=== PATIENT | female | born 1960 | race Caucasian/White ===

== ENCOUNTER 2016-06-22 20:54 | Inpatient (IN) | payer OTHER ==
[~2016-06-22 20:54] MED LIST: THIAMINE 100 MG TAB PO SCH
[2016-06-22] MEDS ORDERED: SODIUM CHLORIDE 0.9% 1,000 ML IV STA (21:16)
[2016-06-22] MEDS ORDERED: SODIUM CHLORIDE 0.9% 500 ML IV STA (21:16)
--- NOTE | 2016-06-22 21:16 | ED ---
General Adult HPI - General Chief complaint: Overdose Stated complaint: ETOH,OD Time Seen by Provider: 06/22/16 20:59 Source: patient, RN notes reviewed, old records reviewed Mode of arrival: EMS Limitations: no limitations - History of Present Illness Initial comments: This is a 36-year-old female brought in by EMS. Patient brought in for evaluation of overdose, patient was responsive to Narcan but [facility] found unresponsive, patient overdosed on multiple medications. - Related Data Home Medications Medication Instructions Recorded Confirmed HYDROcodone/APAP 10-325MG [[place] 1 tab PO Q6H PRN 10/24/13 06/22/16 10] fentaNYL [Duragesic] 1 patch TRANSDERM Q72H 10/24/13 06/22/16 Atenolol [Tenormin] 50 mg PO BID 06/22/16 06/22/16 Gabapentin 600 mg PO TID 06/22/16 06/22/16 Zolpidem [Ambien] 5 mg PO HS PRN 06/22/16 06/22/16 buPROPion HCL [Wellbutrin XL] 300 mg PO DAILY 06/22/16 06/22/16 Allergies Allergy/AdvReac Type Severity Reaction Status Date / Time No Known Allergies Allergy Verified 06/22/16 21:15 Review of Systems ROS Statement: Those systems with pertinent positive or pertinent negative responses have been documented in the HPI. ROS Other: All systems not noted in ROS Statement are negative. Past Medical History Additional Past Medical History / Comment(s): fibromyalgia per mother heart valve leakage History of Any Multi-Drug Resistant Organisms: None Reported Past Surgical History: Bariatric Surgery Past Psychological History: Depression Smoking Status: Current every day smoker Past Alcohol Use History: Heavy Past Drug Use History: Prescription Drug Abuse General Exam Limitations: no limitations General appearance: alert, appears intoxicated, anxious Head exam: Present: atraumatic, normocephalic, normal inspection Eye exam: Present: normal appearance, PERRL, EOMI. Absent: scleral icterus, conjunctival injection, periorbital swelling ENT exam: Present: normal exam, mucous membranes moist Neck exam: Present: normal inspection. Absent: tenderness, meningismus, lymphadenopathy Respiratory exam: Present: normal lung sounds bilaterally. Absent: respiratory distress, wheezes, rales, rhonchi, stridor Cardiovascular Exam: Present: regular rate, normal rhythm, normal heart sounds. Absent: systolic murmur, diastolic murmur, rubs, gallop, clicks GI/Abdominal exam: Present: soft, normal bowel sounds. Absent: distended, tenderness, guarding, rebound, rigid Extremities exam: Present: normal inspection, full ROM, normal capillary refill. Absent: tenderness, pedal edema, joint swelling, calf tenderness Back exam: Present: normal inspection Neurological exam: Present: alert, oriented X3, CN II-XII intact Psychiatric exam: Present: normal affect, normal mood Skin exam: Present: warm, dry, intact, normal color. Absent: rash Course Vital Signs 06/22/16 21:03 Temperature 98.0 F Pulse Rate 83 Respiratory 20 Rate Blood Pressure 129/59 O2 Sat by Pulse 99 Oximetry - Reevaluation(s) Reevaluation #1: 06/22/16 23:26 Patient continues to remain agitated and combative, using Ativan to keep patient called EKG Findings - EKG Comments: EKG Findings:: EKG shows normal sinus rhythm rate 91, VA 144, QRS 84, QTC 477 Medical Decision Making - Medical Decision Making 56 female year for evaluation of polysubstance overdose including alcohol. Patient with severe alcohol did overdose, dehydration, multiple oxylate abnormalities. Patient be admitted for rehydration, monitoring of cardiopulmonary and mental status, - Lab Data Result diagrams: 06/22/16 21:42 06/22/16 21:42 Lab Results 06/22/16 06/22/16 06/22/16 Range/Units 21:42 21:42 21:42 WBC 10.0 (3.8-10.6) k/uL RBC 4.60 (3.80-5.40) m/uL Hgb 14.8 (11.4-16.0) gm/dL Hct 44.5 (34.0-46.0) % MCV 96.7 (80.0-100.0) fL MCH 32.3 (25.0-35.0) pg MCHC 33.4 (31.0-37.0) g/dL RDW 13.9 (11.5-15.5) % Plt Count 284 (150-450) k/uL Neutrophils % 75 % Lymphocytes % 20 % Monocytes % 3 % Eosinophils % 0 % Basophils % 1 % Neutrophils # 7.4 (1.3-7.7) k/uL Lymphocytes # 1.9 (1.0-4.8) k/uL Monocytes # 0.3 (0-1.0) k/uL Eosinophils # 0.0 (0-0.7) k/uL Basophils # 0.1 (0-0.2) k/uL PT (9.0-12.0) sec INR (<1.1) Sodium 134 L (137-145) mmol/L Potassium 4.8 (3.5-5.1) mmol/L Chloride 96 L (98-107) mmol/L Carbon Dioxide 20 L (22-30) mmol/L Anion Gap 18 mmol/L BUN 7 (7-17) mg/dL Creatinine 0.46 L (0.52-1.04) mg/dL Est GFR (MDRD) Af Amer >60 (>60 ml/min/1.73 sqM) Est GFR (MDRD) Non-Af >60 (>60 ml/min/1.73 sqM) Glucose 72 L (74-99) mg/dL Calcium 8.4 (8.4-10.2) mg/dL Total Bilirubin 1.0 (0.2-1.3) mg/dL AST 63 H (14-36) U/L ALT 57 H (9-52) U/L Alkaline Phosphatase 120 (38-126) U/L Total Creatine Kinase 154 H (30-135) U/L CK-MB (CK-2) 2.3 (0.0-2.4) ng/mL CK-MB (CK-2) Rel Index 1.5 Troponin I <0.012 (0.000-0.034) ng/mL Total Protein 6.7 (6.3-8.2) g/dL Albumin 3.9 (3.5-5.0) g/dL Lipase 116 (23-300) U/L Urine Color Urine Appearance (Clear) Urine pH (5.0-8.0) Ur Specific [place] (1.001-1.035) Urine Protein (Negative) Urine Glucose (UA) (Negative) Urine Ketones (Negative) Urine Blood (Negative) Urine Nitrate (Negative) Urine Bilirubin (Negative) Urine Urobilinogen (<2.0) mg/dL Ur Leukocyte Esterase (Negative) Urine RBC (0-5) /hpf Urine WBC (0-5) /hpf Ur Squamous Epith Cells (0-4) /hpf Urine Mucus (None) /hpf Urine HCG, Qual (Not Detectd) Salicylates <1.0 mg/dL Urine Opiates Screen (NotDetected) Ur Oxycodone Screen (NotDetected) Urine Methadone Screen (NotDetected) Ur Propoxyphene Screen (NotDetected) Acetaminophen <10.0 ug/mL Ur Barbiturates Screen (NotDetected) U Tricyclic Antidepress (NotDetected) Ur Phencyclidine Scrn (NotDetected) Ur Amphetamines Screen (NotDetected) U Methamphetamines Scrn (NotDetected) U Benzodiazepines Scrn (NotDetected) Urine Cocaine Screen (NotDetected) U Marijuana (THC) Screen (NotDetected) Serum Alcohol 440 mg/dL 06/22/16 06/22/16 06/22/16 Range/Units 21:42 21:42 21:42 WBC (3.8-10.6) k/uL RBC (3.80-5.40) m/uL Hgb (11.4-16.0) gm/dL Hct (34.0-46.0) % MCV (80.0-100.0) fL MCH (25.0-35.0) pg MCHC (31.0-37.0) g/dL RDW (11.5-15.5) % Plt Count (150-450) k/uL Neutrophils % % Lymphocytes % % Monocytes % % Eosinophils % % Basophils % % Neutrophils # (1.3-7.7) k/uL Lymphocytes # (1.0-4.8) k/uL Monocytes # (0-1.0) k/uL Eosinophils # (0-0.7) k/uL Basophils # (0-0.2) k/uL PT 10.5 (9.0-12.0) sec INR 1.0 (<1.1) Sodium (137-145) mmol/L Potassium (3.5-5.1) mmol/L Chloride (98-107) mmol/L Carbon Dioxide (22-30) mmol/L Anion Gap mmol/L BUN (7-17) mg/dL Creatinine (0.52-1.04) mg/dL Est GFR (MDRD) Af Amer (>60 ml/min/1.73 sqM) Est GFR (MDRD) Non-Af (>60 ml/min/1.73 sqM) Glucose (74-99) mg/dL Calcium (8.4-10.2) mg/dL Total Bilirubin (0.2-1.3) mg/dL AST (14-36) U/L ALT (9-52) U/L Alkaline Phosphatase (38-126) U/L Total Creatine Kinase (30-135) U/L CK-MB (CK-2) (0.0-2.4) ng/mL CK-MB (CK-2) Rel Index Troponin I (0.000-0.034) ng/mL Total Protein (6.3-8.2) g/dL Albumin (3.5-5.0) g/dL Lipase (23-300) U/L Urine Color Yellow Urine Appearance Clear (Clear) Urine pH 6.0 (5.0-8.0) Ur Specific [place] 1.009 (1.001-1.035) Urine Protein Trace H (Negative) Urine Glucose (UA) Negative (Negative) Urine Ketones Trace H (Negative) Urine Blood Trace H (Negative) Urine Nitrate Negative (Negative) Urine Bilirubin Negative (Negative) Urine Urobilinogen <2.0 (<2.0) mg/dL Ur Leukocyte Esterase Negative (Negative) Urine RBC 1 (0-5) /hpf Urine WBC 1 (0-5) /hpf Ur Squamous Epith Cells <1 (0-4) /hpf Urine Mucus Rare H (None) /hpf Urine HCG, Qual Not Detected (Not Detectd) Salicylates mg/dL Urine Opiates Screen Not Detected (NotDetected) Ur Oxycodone Screen Not Detected (NotDetected) Urine Methadone Screen Not Detected (NotDetected) Ur Propoxyphene Screen Not Detected (NotDetected) Acetaminophen ug/mL Ur Barbiturates Screen Not Detected (NotDetected) U Tricyclic Antidepress Not Detected (NotDetected) Ur Phencyclidine Scrn Not Detected (NotDetected) Ur Amphetamines Screen Not Detected (NotDetected) U Methamphetamines Scrn Not Detected (NotDetected) U Benzodiazepines Scrn Not Detected (NotDetected) Urine Cocaine Screen Not Detected (NotDetected) U Marijuana (THC) Screen Not Detected (NotDetected) Serum Alcohol mg/dL Disposition Clinical Impression: Drug overdose, Poisoning by opiate or related narcotic, Alcohol overdose Disposition: ADMITTED IP TO THIS HOSP Condition: Fair Referrals: Aldair Patel MD [Primary Care Provider] - 1-2 days
[2016-06-22] MEDS ORDERED: LORazepam 2 MG/ML SYRINGE IV STA (21:54)
[2016-06-22 21:55] LABS: Basophils # (A) 0.1 k/uL (0-0.2); Basophils % (A) 1 %; CH 32.9; CHCM 34.2; Eosinophils % (A) 0 %; HCT 44.5 % (34.0-46.0); HDW 2.18; HGB 14.8 gm/dL (11.4-16.0); Luc # (Auto) 0.18; Luc % (Auto) 2; Lymphocytes # (A) 1.9 k/uL (1.0-4.8); Lymphocytes % (A) 20 %; MCH 32.3 pg (25.0-35.0); MCHC 33.4 g/dL (31.0-37.0); MCV 96.7 fL (80.0-100.0); Mean Platelet Volume 7.1; Monocytes # (A) 0.3 k/uL (0-1.0); Monocytes % (A) 3 %; Neutrophils # (A) 7.4 k/uL (1.3-7.7); Neutrophils % (A) 75 %; RDW 13.9 % (11.5-15.5); WBC (Perox) 9.93
[2016-06-22 22:01] LABS: Appearance,Urine Clear (Clear); Bilirubin,Urine Negative (Negative); Glucose,Urine (UA) Negative (Negative); Ketones,Urine Trace (Negative); Leukocyte Esterase,Urine Negative (Negative); Mucus,Urine Rare /hpf; Nitrite,Urine Negative (Negative); Particle Count 3174; Protein,Urine Trace (Negative); RBC,Urine 1 /hpf (0-5); Specific Gravity,Urine 1.009 (1.001-1.035); Squamous Epithelial Cell,Urine <1 /hpf (0-4); UA Billing (MACRO vs. MICRO) MICRO; Urobilinogen,Urine <2.0 mg/dL (<2.0); WBC,Urine 1 /hpf (0-5)
[2016-06-22 22:09] LABS: ALT 57 U/L (9-52); AST 63 U/L (14-36); Acetaminophen <10.0 ug/mL; Alkaline Phosphatase 120 U/L (38-126); Anion Gap 18 mmol/L; Blood Urea Nitrogen 7 mg/dL (7-17); Calcium 8.4 mg/dL (8.4-10.2); Carbon Dioxide 20 mmol/L (22-30); Chloride 96 mmol/L (98-107); Glucose 72 mg/dL (74-99); Non-African American GFR(MDRD) >60 (>60 ml/min/1.73 sqM); Potassium 4.8 mmol/L (3.5-5.1); Salicylate <1.0 mg/dL; Sodium 134 mmol/L (137-145); Total Protein 6.7 g/dL (6.3-8.2)
[2016-06-22 22:15] LABS: Creatine Kinase 154 U/L (30-135)
[2016-06-22 22:28] LABS: Creatine Kinase MB 2.3 ng/mL (0.0-2.4); Troponin I <0.012 ng/mL (0.000-0.034)
[2016-06-22 22:43] LABS: Alcohol 440 mg/dL
[2016-06-22 22:53] LABS: Prothrombin Time 10.5 sec (9.0-12.0)
[2016-06-22] MEDS ORDERED: SODIUM CHLORIDE 0.9% 1,000 ML IV ONE (23:24)
[2016-06-22] MEDS ORDERED: THIAMINE 100 MG/ML 2 ML VIAL IM STA (23:24)
[2016-06-22] MEDS ORDERED: LORazepam 2 MG/ML SYRINGE IV PRN ×2 (23:24)
[2016-06-23] MEDS: LORazepam 2 MG/ML SYRINGE IV PRN ×5 (04:10→20:12)
[2016-06-23] MEDS: ENOXAPARIN 40 MG/0.4 ML SYRINGE SQ SCH (08:29)
[2016-06-23] MEDS: HYDROcodone/APAP 5-325MG 1 EACH TAB PO PRN ×3 (14:33→21:53)
--- NOTE | 2016-06-23 16:42 | HP ---
DATE OF ADMISSION: 06/22/2016 The patient is a 56-year-old female who came in which because of alcohol intoxication. Patient was admitted for overdose although patient is supposed to take fentanyl and [place], his urine opiate screen was negative. Patient was severely depressed. The patient denied any suicidal or homicidal ideation and patient is awaiting psychiatric evaluation at this point of time. Patient used to use Cymbalta in the past and patient Cymbalta was switched to Wellbutrin because of her smoking. Patient is still smoking in spite of Wellbutrin and patient tells me that she does not drink alcohol every single day. Family member her [id number] is at bedside and she believes she does drink alcohol every single day. Because of that reason, we will keep her here and watch her and will switch her atenolol to metoprolol because of her low blood pressure and the patient is expected to have tachycardia because if she undergoes withdrawals. If patient does not have any withdrawals, patient probably can be discharged home or inpatient psychiatric as per psychiatry recommendations. The patient is on thiamine, multivitamin supplementation. REVIEW OF SYSTEMS: CONSTITUTIONAL: No fever, no malaise, no fatigue. HEENT: No recent visual problems or hearing problems. Denied any sore throat. CARDIOVASCULAR: No chest pain, orthopnea, PND, no palpitations, no syncope. PULMONARY: No shortness of breath, no cough, no hemoptysis. GASTROINTESTINAL: No diarrhea, no nausea, no vomiting, no abdominal pain. Normoactive bowel sounds. NEUROLOGICAL: No headaches, no weakness, no numbness. HEMATOLOGICAL: Denies any bleeding or petechiae. GENITOURINARY: Denies any burning micturition, frequency, or urgency. MUSCULOSKELETAL/RHEUMATOLOGICAL: Denies any joint pain, swelling, or any muscle pain. ENDOCRINE: Denies any polyuria or polydipsia. Psychiatric as described in HPI. The rest of the 14 point review of systems is negative. Home medications include: 1. Hydrocodone/acetaminophen. 2. Fentanyl. 3. Atenolol. 4. Gabapentin. 5. Zolpidem. 6. Bupropion. History of fibromyalgia, depression, severe depression, hypertension. PAST MEDICAL/SURGICAL HISTORY: Significant for bariatric surgery, right ( ) resection surgery. Severe depression. The patient does drink daily alcohol use history is questionable because of above-mentioned reasons, does smoke every day, about a pack. Denied any drug abuse. FAMILY HISTORY: Denied any family history of hypertension, diabetes mellitus or stroke in the family. PHYSICAL EXAMINATION: VITAL SIGNS: Temperature 98.6, pulse of 96, respiratory rate of 18, blood pressure is 112/69, saturating at 92% on room air. GENERAL: The patient is alert and oriented x3, not in any acute distress. Well developed, well nourished. HEENT: Pupils are round and equally reacting to light. EOMI. No scleral icterus. No conjunctival pallor. Normocephalic, atraumatic. No pharyngeal erythema. No thyromegaly. CARDIOVASCULAR: S1 and S2 present. No murmurs, rubs, or gallops. PULMONARY: Chest is clear to auscultation, no wheezing or crackles. ABDOMEN: Soft, nontender, nondistended, normoactive bowel sounds. No palpable organomegaly. MUSCULOSKELETAL: No joint swelling or deformity. EXTREMITIES: No cyanosis, clubbing, or pedal edema. NEUROLOGICAL: Gross neurological examination did not reveal any focal deficits. SKIN: No rashes. PSYCHIATRIC: Patient is severely depressed and tearful although denied any suicidal or homicidal ideations at this point of time. ASSESSMENT AND PLAN: 1. Alcohol intoxication. 2. Evaluate for alcohol withdrawal. 3. Severe depression. 4. Hypertension. 5. Chronic low back pain. PLAN: Continue with IV fluids, alcohol withdrawal precautions, BOO Carbajal protocol, IV fluids. Psychiatry evaluation.
[2016-06-23] MEDS: THIAMINE 100 MG TAB PO SCH (17:56)
[2016-06-23] MEDS: METOPROLOL TARTRATE 12.5 MG TAB PO SCH (20:13)
[2016-06-23] MEDS: SODIUM CHLORIDE 0.9% 1,000 ML IV SCH (20:17)
[2016-06-24] MEDS: SODIUM CHLORIDE 0.9% 1,000 ML IV SCH ×3 (00:26→20:41)
[2016-06-24] MEDS: LORazepam 2 MG/ML SYRINGE IV PRN (00:27)
[2016-06-24] MEDS: HYDROcodone/APAP 5-325MG 1 EACH TAB PO PRN ×5 (03:30→20:40)
[2016-06-24] MEDS: METOPROLOL TARTRATE 12.5 MG TAB PO SCH ×2 (08:14→20:40)
[2016-06-24] MEDS: ENOXAPARIN 40 MG/0.4 ML SYRINGE SQ SCH (08:14)
[2016-06-24 11:45] LABS: CH 32.8; CHCM 32.7; HCT 40.6 % (34.0-46.0); HDW 2.11; MCH 32.4 pg (25.0-35.0); MCHC 32.1 g/dL (31.0-37.0); MCV 101.1 fL (80.0-100.0); Macrocytosis Slight; Mean Platelet Volume 7.8; RBC 4.02 m/uL (3.80-5.40); RDW 13.7 % (11.5-15.5); WBC 6.4 k/uL (3.8-10.6)
[2016-06-24 12:01] LABS: ALT 54 U/L (9-52); AST 63 U/L (14-36); Alkaline Phosphatase 95 U/L (38-126); Anion Gap 9 mmol/L; Blood Urea Nitrogen 8 mg/dL (7-17); Calcium 8.8 mg/dL (8.4-10.2); Carbon Dioxide 24 mmol/L (22-30); Chloride 103 mmol/L (98-107); Glucose 88 mg/dL (74-99); Non-African American GFR(MDRD) >60 (>60 ml/min/1.73 sqM); Potassium 4.3 mmol/L (3.5-5.1); Sodium 136 mmol/L (137-145); Total Bilirubin 2.5 mg/dL (0.2-1.3); Total Protein 5.8 g/dL (6.3-8.2)
[2016-06-24] MEDS: THIAMINE 100 MG TAB PO SCH ×2 (12:09→16:57)
[2016-06-24] MEDS: NICOTINE 21MG/24HR PATCH TRANSDERM SCH (15:25)
[2016-06-24] MEDS: GABAPENTIN 300 MG CAP PO SCH ×2 (18:33→21:10)
--- NOTE | 2016-06-24 18:41 | P.CN ---
Psychiatric Consult - . Consult date: 06/24/16 Consult:: 06/24/16 18:34 IDENTIFYING DATA: 56-year-old female patient HPI: Patient admitted to the medical floor and [facility] with concerns of depression, overdose and alcohol intoxication. Per chart history she had been changed from Cymbalta to Wellbutrin to help with smoking cessation. Patient states that a neighbor lady had knocked on her door and there is no answers so she called the police brought her to the hospital because she was crying and upset. Per chart history she did receive Narcan in the emergency room and responded. She relays that she was on the Duragesic patch as well as Ione. She does state that occasionally she would take more than prescribed but it was never to hurt herself. She denies any overdose of medication. She does describe that she's had a lot of anxiety and some depression lately. She says she doesn't feel like she's dealt with the of her mom who she was very close with 1-1/2 years ago. She is motivated for outpatient counseling. PAST PSYCHIATRIC HISTORY: She is not currently in any outpatient counseling. She's never had any psychiatric hospitalizations. She most recently is on Wellbutrin XL 300 mg daily and she says that she did like Cymbalta better. She denies any history of suicide attempts. PMH: History of bariatric surgery ALLERGIES: No known ALLERGIES MEDICATIONS: Ione when necessary, Tenormin, Wellbutrin XL 300 mg daily, Lovenox , Neurontin, Ativan when necessary, Lopressor, Habitrol, vitamin B, Ambien when necessary CHEMICAL DEPENDENCY HISTORY: History of drinking alcohol occasionally in the past. FAMILY PSYCHIATRIC HISTORY: Grandma with nervous breakdown in the 60s. FAMILY CHEMICAL DEPENDENCY HISTORY: None known at this time. SOCIAL HISTORY: She says her son is coming home from [place] next week and she is excited about that. She currently lives alone but is going to stay with her daughter Grandkids after discharge which she is excited about. She's been once and . She has 4 grandchildren 2 children. MENTAL STATUS EXAM: She is alert and cooperative with the interview. Her speech is fluent, not rapid or pressured. Thought processes are organized. Her mood is described as "alright." She denies any recent or current thoughts of harm to self or others. No active evidence of psychosis or agitation. Cognitively she appears to be grossly intact. She reports that she feels totally safe here in the hospital. IMPRESSIONS: Unspecified depressive disorder; rule out history of opioid use disorder; unspecified anxiety disorder; bereavement issues PLAN: We'll provide patient with outpatient referral sheet for mental health treatment for discharge planning. Patient is motivated for outpatient treatment. She denies any thoughts of suicide. I do not see any criteria for inpatient psychiatric hospitalization at this time. No new psychotropic medication recommendations at this time. Okay to discontinue one-to-one sitter at this time. 06/24/16 18:41
[2016-06-24] MEDS ORDERED: ATENOLOL 50 MG TAB PO SCH (21:00)
[2016-06-24] MEDS ORDERED: ZOLPIDEM 5 MG TAB PO PRN (21:00)
[2016-06-25] MEDS: HYDROcodone/APAP 5-325MG 1 EACH TAB PO PRN ×4 (00:33→14:25)
[2016-06-25 07:52] VITALS: BP 135/84; PULSE 68; RESP 19; TEMP 96.8
[2016-06-25] MEDS: ENOXAPARIN 40 MG/0.4 ML SYRINGE SQ SCH (08:58)
[2016-06-25] MEDS: METOPROLOL TARTRATE 12.5 MG TAB PO SCH (08:59)
[2016-06-25] MEDS: NICOTINE 21MG/24HR PATCH TRANSDERM SCH (08:59)
[2016-06-25] MEDS: GABAPENTIN 300 MG CAP PO SCH (08:59)
[2016-06-25] MEDS ORDERED: buPROPion XL 300 MG TAB.ER.24H PO SCH (09:00)
[2016-06-25 09:02] LABS: Basophils % (A) 0 %; CH 32.5; CHCM 31.8; Eosinophils # (A) 0.2 k/uL (0-0.7); Eosinophils % (A) 3 %; HCT 44.2 % (34.0-46.0); HDW 2.04; HGB 13.9 gm/dL (11.4-16.0); Luc # (Auto) 0.17; Luc % (Auto) 3; Lymphocytes # (A) 1.6 k/uL (1.0-4.8); Lymphocytes % (A) 25 %; MCH 32.4 pg (25.0-35.0); MCHC 31.5 g/dL (31.0-37.0); MCV 102.8 fL (80.0-100.0); Macrocytosis Slight; Mean Platelet Volume 7.2; Monocytes # (A) 0.4 k/uL (0-1.0); Monocytes % (A) 6 %; Neutrophils # (A) 4.2 k/uL (1.3-7.7); Neutrophils % (A) 64 %; RDW 13.6 % (11.5-15.5); WBC 6.5 k/uL (3.8-10.6); WBC (Perox) 6.79
[2016-06-25 09:19] LABS: Anion Gap 8 mmol/L; Blood Urea Nitrogen 5 mg/dL (7-17); Calcium 8.8 mg/dL (8.4-10.2); Carbon Dioxide 26 mmol/L (22-30); Chloride 105 mmol/L (98-107); Glucose 136 mg/dL (74-99); Non-African American GFR(MDRD) >60 (>60 ml/min/1.73 sqM); Potassium 3.9 mmol/L (3.5-5.1); Sodium 139 mmol/L (137-145)
--- NOTE | 2016-06-25 10:32 | PN ---
INTERVAL HISTORY: Ms. Johnson is a 56 -year-old female with past medical history of alcohol abuse, severe depression, admitted to the hospital for overdosing on her narcotics. She was also found to have alcohol level of 450 at the time of admission. But patient's UDS has been negative for any opiates or narcotics. The patient was petitioned and psychiatric evaluation is currently pending. Today patient is sitting up in bed. She does not have any active complaints. REVIEW OF SYSTEMS: CONSTITUTIONAL: Denies having any fever, chills or rigors. RESPIRATORY: No cough. No difficulty in breathing. CARDIAC: No chest pain or palpitations. GI: No abdominal pain, nausea, vomiting, or diarrhea. : No dysuria or hematuria. Patient's medications have been reviewed. On examination vitals: Temperature 97.1, heart rate 70, respirations 20, blood pressure 126/61, saturating at 95% on room air. GENERAL EXAMINATION: Appears to be no acute distress. HEAD: Atraumatic, normocephalic. EYES: Pupils, round, and reactive to light. NECK: No JVD. No thyromegaly. CARDIAC: S1, S2 heard. Bilateral breath sounds are diminished in all lung romero. GI: Abdomen is soft, nontender. Bowel sounds positive. EXTREMITIES: No edema. No cyanosis. CONDENSER SETTER: Alert, awake, oriented x3. No focal deficits. SKIN: No rash. MUSCULOSKELETAL: No joint swelling or deformity. Patient's labs: White count of 6.7, hemoglobin is 13, platelets of 183. Sodium 136, potassium 4.3, chloride 103, bicarb 24, BUN 8, creatinine 0.50, albumin of 3. ASSESSMENT AND PLAN: 1. Acute alcohol intoxication. 2. Evaluation for alcohol withdrawal. 3. Severe depression. 4. Hypertension. 5. Chronic low back pain. PLAN: The plan is to continue the patient monitor the patient for DTs and psychiatric evaluation is pending for per the history of severe depression and suicidal ideation. Continue the rest of her medication regimen and further recommendations to follow depending on the progress of the patient. Anticipate discharge in the next 24 hours. SALLYD
[2016-06-25] MEDS: SODIUM CHLORIDE 0.9% 1,000 ML IV SCH (11:42)
[2016-06-25] MEDS: THIAMINE 100 MG TAB PO SCH (11:57)
--- NOTE | 2016-06-26 14:17 | DS ---
DATE OF ADMISSION: 06/22/2016 DATE OF DISCHARGE: 06/25/2016 HOSPITAL COURSE: Ms. Johnson is a 56-year-old female with a past medical history of depression, alcohol abuse, admitted to the hospital with the chief complaint of altered mental status changes. Patient has history of polysubstance abuse. She takes fentanyl, [place], gabapentin and she also has chronic alcohol abuse. At the time of admission, the patient's alcohol level was 450, but her UDS has been negative for any opiates or benzos. The patient was admitted for alcohol intoxication and Psychiatric Services and she was cleared by them to be discharged home. The patient's mentation is back to her baseline. She does not have any complaints but states that she ran out of her pain medications and wants refills on them. I discussed with the patient that I can refill her blood pressure medications and Neurontin but none of her narcotics and she has to go through her PCP to refill them. At the time of discharge, patient's vital signs, temperature 96.8, heart rate 68, respiratory rate 19, blood pressure 155/84, saturating at 97% on room air. GENERAL EXAMINATION: No acute distress. HEART: S1, S2 heard. LUNGS: Bilateral breath sounds positive. No wheezes. EXTREMITIES: No edema. Patient's labs: White count is 6.5, hemoglobin is 13.9, platelets of 169. Sodium 139, potassium 3.9, chloride 105, bicarb 26, BUN 5, creatinine 0.50. DISCHARGE DIAGNOSES: 1. Alcohol intoxication. 2. Evaluation for alcoholic withdrawal. 3. Severe depression. 4. Hypertension. 5. Chronic low back pain. PATIENT'S DISCHARGE MEDICATIONS: 1. [place] 5/325 one tablet q.4 hours p.r.n. for pain. 2. Atenolol 50 mg p.o. b.i.d. 3. Wellbutrin 300 mg p.o. daily. 4. Gabapentin 600 mg p.o. daily. 5. Ambien 5 mg p.o. q.h.s. 6. Fentanyl patch is one patch q.72 hours. She is advised to follow with her PCP, Dr. Aldair Patel in 2 to 3 days. Activity as tolerated, heart-healthy diet. Advised to followup with her PCP. More than 35 minutes spent towards the discharge of the patient.
== END 2016-06-25 15:23 | disposition home or self-care (01) | DRG 897 ==
LOC: EC 20:54 → 4MS4W 23:24
PROVIDERS: ADMIT Hospitalist; ATTEND Hospitalist
DX: F10.129 Alcohol abuse with intoxication, unspecified (principal); I10 Essential (primary) hypertension; F32.9 Major depressive disorder, single episode, unspecified; E86.0 Dehydration; F17.200 Nicotine dependence, unspecified, uncomplicated; G89.29 Other chronic pain; M79.7 Fibromyalgia; M54.5 Low back pain; Z79.899 Other long term (current) drug therapy; Z98.84 Bariatric surgery status; Y90.8 Blood alcohol level of 240 mg/100 ml or more
CPT/HCPCS: 36415; 80048; 80053; 80306; 80320; 81001; 81025; 82550; 82553; 83520; 83690; 84484; 85025; 85027; 85610; 93005; 96361; 96372; 96374; 96376; 99285

== ENCOUNTER 2016-07-18 11:57 | Emergency (ER) | payer OTHER ==
--- NOTE | 2016-07-18 12:24 | ED ---
General Adult HPI - General Stated complaint: ETOH Time Seen by Provider: 07/18/16 12:00 Source: RN notes reviewed - History of Present Illness Initial comments: This is a 56-year-old female who presents emergency Department stating that she has a long-standing history of depression and sees a counselor on for. Patient states she has taken her [place] was and Xanax early so she has been much more anxious lately. Patient states she is an alcoholic but has been sober for 25 years and only recently started drinking occasionally. Patient states she qualifies is a binge drinker. Patient states she drank a little bit this morning but not too much. Patient states she is not suicidal or homicidal. Patient states she was hoping to come here and talk to the psychiatrist. When I told the psychiatrist wasn't available to talk to her in the emergency department she stated then she would just assume go home and follow-up with her counselor. Patient stated that she would be safe at home and she had a friend that was with her that would also stated she would be safe at home. - Related Data Home Medications Medication Instructions Recorded Confirmed fentaNYL [Duragesic 50MCG/HR] 1 patch TRANSDERM Q72H 10/24/13 06/22/16 Zolpidem [Ambien] 5 mg PO HS PRN 06/22/16 06/22/16 buPROPion HCL [Wellbutrin XL] 300 mg PO DAILY 06/22/16 06/22/16 Previous Rx's Medication Instructions Recorded Atenolol [Tenormin] 50 mg PO BID #20 tab 06/25/16 Gabapentin 600 mg PO TID #10 tablet 06/25/16 HYDROcodone/APAP 10-325MG [[place] 1 tab PO Q6H PRN #10 tab 06/25/16 10-325] Allergies Allergy/AdvReac Type Severity Reaction Status Date / Time No Known Allergies Allergy Verified 06/22/16 21:15 Review of Systems ROS Statement: Those systems with pertinent positive or pertinent negative responses have been documented in the HPI. ROS Other: All systems not noted in ROS Statement are negative. 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 Patient is nontoxic and well- hydrated and is in no acute distress. Patient does appear mildly intoxicated ENT: Neck is soft and supple. No significant lymphadenopathy is noted. Oropharynx is clear. Moist mucous membranes. Neck has full range of motion without eliciting any pain. EYES: The sclera were anicteric and conjunctiva were pink and moist. Extraocular movements were intact and pupils were equal round and reactive to light. Eyelids were unremarkable. PULMONARY: Unlabored respirations. Good breath sounds bilaterally. No audible rales rhonchi or wheezing was noted. CARDIOVASCULAR: There is a regular rate and rhythm without any murmurs gallops or rubs. ABDOMEN: Soft and nontender with normal bowel sounds. No palpable organomegaly was noted. There is no palpable pulsatile mass. SKIN: Skin is clear with no lesions or rashes and otherwise unremarkable. NEUROLOGIC: Patient is alert and oriented x3. Cranial nerves II through XII are grossly intact. Motor and sensory are also intact. Normal speech, volume and content. Symmetrical smile. MUSCULOSKELETAL: Normal extremities with adequate strength and full range of motion. PSYCHIATRIC: Patient seems depressed but does not state she is suicidal or homicidal. Course Vital Signs 07/18/16 12:22 Temperature 98.4 F Pulse Rate 86 Respiratory 16 Rate Blood Pressure 125/87 Medical Decision Making - Medical Decision Making Patient's friend came back to pick her up and stated that she never mentioned anything about hurting herself or wanting to commit suicide. Patient's friend states that she believes the patient will be safe. [facility] and follow up with her primary medical care doctor for some more anxiety medication and follow-up on with her counselor. Disposition Clinical Impression: Alcohol intoxication, Depression Disposition: HOME SELF-CARE Condition: Good Instructions: Alcohol Intoxication (ED) Referrals: Aldair Patel MD [Primary Care Provider] - 1-2 days Time of Disposition: 12:54
[2016-07-18] MEDS ORDERED: ACETAMINOPHEN TAB 325 MG TAB PO STA (12:45)
[2016-07-18] MEDS ORDERED: LORazepam 1 MG TAB PO STA (12:55)
[2016-07-18 13:09] VITALS: BP 124/76; PULSE 76; RESP 18; TEMP 97.7
== END 2016-07-18 13:09 | disposition home or self-care (01) ==
LOC: EC 11:57
DX: F10.129 Alcohol abuse with intoxication, unspecified (principal); F32.9 Major depressive disorder, single episode, unspecified; M79.7 Fibromyalgia; Z87.891 Personal history of nicotine dependence; Z79.899 Other long term (current) drug therapy
CPT/HCPCS: 82075; 99284

== ENCOUNTER 2016-08-15 14:39 | Observation (INO) | payer OTHER ==
[2016-08-15] MEDS ORDERED: MULTIVITAMINS, THERA 1 EACH TAB PO STA (15:27)
[2016-08-15] MEDS ORDERED: SODIUM CHLORIDE 0.9% 1,000 ML IV STA ×2 (15:27)
[2016-08-15] MEDS ORDERED: THIAMINE 100 MG/ML 2 ML VIAL IM STA (15:27)
[2016-08-15] MEDS ORDERED: FOLIC ACID 1 MG TAB PO STA (15:28)
[2016-08-15 16:13] LABS: Basophils # (A) 0.1 k/uL (0-0.2); Basophils % (A) 0 %; CHCM 33.3; Eosinophils % (A) 0 %; HCT 50.7 % (34.0-46.0); HDW 2.33; HGB 16.4 gm/dL (11.4-16.0); Luc # (Auto) 0.31; Luc % (Auto) 2; Lymphocytes # (A) 2.2 k/uL (1.0-4.8); Lymphocytes % (A) 13 %; MCH 32.2 pg (25.0-35.0); MCHC 32.3 g/dL (31.0-37.0); MCV 99.5 fL (80.0-100.0); Macrocytosis Slight; Mean Platelet Volume 6.6; Monocytes # (A) 0.6 k/uL (0-1.0); Monocytes % (A) 4 %; Neutrophils # (A) 13.1 k/uL (1.3-7.7); Neutrophils % (A) 80 %; RDW 14.2 % (11.5-15.5); WBC 16.4 k/uL (3.8-10.6); WBC (Perox) 15.66
[2016-08-15 16:19] LABS: ALT 46 U/L (9-52); AST 68 U/L (14-36); Alkaline Phosphatase 148 U/L (38-126); Anion Gap 19 mmol/L; Blood Urea Nitrogen 10 mg/dL (7-17); Calcium 8.7 mg/dL (8.4-10.2); Carbon Dioxide 20 mmol/L (22-30); Chloride 100 mmol/L (98-107); Glucose 76 mg/dL (74-99); Non-African American GFR(MDRD) >60 (>60 ml/min/1.73 sqM); Potassium 4.1 mmol/L (3.5-5.1); Sodium 139 mmol/L (137-145); Total Bilirubin 0.9 mg/dL (0.2-1.3); Total Protein 7.3 g/dL (6.3-8.2)
[2016-08-15 16:28] LABS: Alcohol 398 mg/dL
--- NOTE | 2016-08-15 16:50 | ED ---
Alcohol HPI - General Chief Complaint: Alcohol Stated Complaint: Altered Mental Time Seen by Provider: 08/15/16 15:00 Source: patient Mode of arrival: EMS Limitations: no limitations - History of Present Illness Initial Comments: This 56-year-old white female presents with alcohol intoxication. She is very poor historian and history is limited due to her alcohol intoxication. She denies any actual injuries. She is not sure who called EMS to bring her to the ER. She doesn't it to drinking alcohol. She denies any drug use. She has no medical or psychiatric complaints otherwise. Once again history is limited due to her intoxication. - Related Data Home Medications Medication Instructions Recorded Confirmed fentaNYL [Duragesic 50MCG/HR] 1 patch TRANSDERM Q72H 10/24/13 08/15/16 Zolpidem [Ambien] 5 mg PO HS PRN 06/22/16 08/15/16 buPROPion HCL [Wellbutrin XL] 300 mg PO DAILY 06/22/16 08/15/16 ALPRAZolam [Xanax] 0.25 mg PO BID PRN 08/15/16 08/15/16 Albuterol Inhaler [Ventolin Hfa 1 - 2 puff INHALATION RT-QID PRN 08/15/16 Inhaler] Cyclobenzaprine [Flexeril] 5 mg PO TID PRN 08/15/16 08/15/16 Mirtazapine [Remeron] 15 - 30 mg PO HS 08/15/16 08/15/16 Potassium Chloride ER [K-Dur 20] 20 meq PO DAILY 08/15/16 08/15/16 Previous Rx's Medication Instructions Recorded Atenolol [Tenormin] 50 mg PO BID #20 tab 06/25/16 Gabapentin 600 mg PO TID #10 tablet 06/25/16 HYDROcodone/APAP 10-325MG [[place] 1 tab PO Q6H PRN #10 tab 06/25/16 10-325] Allergies Allergy/AdvReac Type Severity Reaction Status Date / Time No Known Allergies Allergy Verified 08/15/16 14:52 Review of Systems ROS Statement: Those systems with pertinent positive or pertinent negative responses have been documented in the HPI. ROS Other: All systems not noted in ROS Statement are negative. Past Medical History Additional Past Medical History / Comment(s): fibromyalgia per mother heart valve leakage History of Any Multi-Drug Resistant Organisms: None Reported Past Surgical History: Bariatric Surgery Additional Past Surgical History / Comment(s): right lung resection with removal and tumor removal Past Anesthesia/Blood Transfusion Reactions: Unable to Obtain Past Psychological History: Depression Smoking Status: Former smoker Past Alcohol Use History: Heavy Past Drug Use History: Prescription Drug Abuse - Past Family History Mother History Unknown: Yes General Exam - General Exam Comments Initial Comments: GENERAL: The patient is well nourished and well hydrated. VITAL SIGNS: Heart rate, blood pressure, respiratory rate reviewed as recorded in nurse's notes. EYES: Pupils are round and reactive. Extraocular movements are intact. No conjunctival / lid redness or swelling. ENT: No external evidence of injury, swelling, or ecchymosis. Airway is patent. Throat is clear. NECK: Nontender. No swelling or evidence of injury. No subcutaneous emphysema. Trachea is midline. No thyroid mass. HEART: Regular rate and rhythm. Good peripheral pulses. LUNGS/CHEST: Breath sounds clear and equal bilaterally. No rales, rhonchi, or wheezes. No ecchymosis, subcutaneous emphysema, or tenderness. There is a large scar noted over the right thorax from previous surgery. ABDOMEN: Abdomen soft without tenderness. No palpable masses or organomegaly. No peritoneal signs. No abdominal wall swelling or ecchymosis. EXTREMITIES: No extremity tenderness. Normal muscle tone and function. No thoracolumbar tenderness. NEUROLOGIC: Sensation is grossly intact. Cranial nerve exam reveals face is symmetrical, tongue is midline. Patient appears intoxicated with slurred speech. SKIN: No abrasions or ecchymosis is noted. No induration or masses noted. PSYCHIATRIC: Alert but not oriented, appears intoxicated. Limitations: no limitations Course Vital Signs 08/15/16 08/15/16 14:49 17:07 Temperature 98 F Pulse Rate 108 H 96 Respiratory 15 16 Rate Blood Pressure 164/72 158/76 O2 Sat by Pulse 94 L 95 Oximetry Medical Decision Making - Medical Decision Making The patient was seen and examined. An IV is started and she is hydrated. The alcohol level was 398. Her CO2 is somewhat low at 20 and her white blood cell count is slightly elevated at 16.4. This felt as though she benefit from further inpatient sobering. The case was discussed with Angle from internal medicine and she is agreeable to admission. The patient is in no apparent distress on recheck and will be admitted to the hospital for further sobering. - Lab Data Result diagrams: 08/15/16 15:56 08/15/16 15:56 Lab Results 08/15/16 08/15/16 08/15/16 Range/Units 14:53 15:56 15:56 WBC 16.4 H (3.8-10.6) k/uL RBC 5.10 (3.80-5.40) m/uL Hgb 16.4 H (11.4-16.0) gm/dL Hct 50.7 H (34.0-46.0) % MCV 99.5 (80.0-100.0) fL MCH 32.2 (25.0-35.0) pg MCHC 32.3 (31.0-37.0) g/dL RDW 14.2 (11.5-15.5) % Plt Count 370 D (150-450) k/uL Neutrophils % 80 % Lymphocytes % 13 % Monocytes % 4 % Eosinophils % 0 % Basophils % 0 % Neutrophils # 13.1 H (1.3-7.7) k/uL Lymphocytes # 2.2 (1.0-4.8) k/uL Monocytes # 0.6 (0-1.0) k/uL Eosinophils # 0.0 (0-0.7) k/uL Basophils # 0.1 (0-0.2) k/uL Macrocytosis Slight Sodium 139 (137-145) mmol/L Potassium 4.1 (3.5-5.1) mmol/L Chloride 100 (98-107) mmol/L Carbon Dioxide 20 L (22-30) mmol/L Anion Gap 19 mmol/L BUN 10 (7-17) mg/dL Creatinine 0.56 (0.52-1.04) mg/dL Est GFR (MDRD) Af Amer >60 (>60 ml/min/1.73 sqM) Est GFR (MDRD) Non-Af >60 (>60 ml/min/1.73 sqM) Glucose 76 (74-99) mg/dL Calcium 8.7 (8.4-10.2) mg/dL Total Bilirubin 0.9 (0.2-1.3) mg/dL AST 68 H (14-36) U/L ALT 46 (9-52) U/L Alkaline Phosphatase 148 H (38-126) U/L Total Protein 7.3 (6.3-8.2) g/dL Albumin 4.2 (3.5-5.0) g/dL Urine Opiates Screen Not Detected (NotDetected) Ur Oxycodone Screen Not Detected (NotDetected) Urine Methadone Screen Not Detected (NotDetected) Ur Propoxyphene Screen Not Detected (NotDetected) Ur Barbiturates Screen Not Detected (NotDetected) U Tricyclic Antidepress Not Detected (NotDetected) Ur Phencyclidine Scrn Not Detected (NotDetected) Ur Amphetamines Screen Not Detected (NotDetected) U Methamphetamines Scrn Not Detected (NotDetected) U Benzodiazepines Scrn Not Detected (NotDetected) Urine Cocaine Screen Not Detected (NotDetected) U Marijuana (THC) Screen Detected H (NotDetected) Serum Alcohol 398 mg/dL Disposition Clinical Impression: Alcohol intoxication Disposition: ADMITTED IP TO THIS [facility] Condition: Fair Time of Disposition: 17:11 Decision Date: 08/15/16 Decision Time: 17:11
[2016-08-15] MEDS ORDERED: LORazepam 2 MG/ML SYRINGE IV PRN ×4 (17:14)
[2016-08-15] MEDS ORDERED: ONDANSETRON 4 MG/2 ML VIAL IVP PRN (17:21)
[2016-08-15] MEDS ORDERED: NALOXONE 0.4 MG/ML 1 ML VIAL IV PRN (17:21)
[2016-08-15] MEDS ORDERED: ACETAMINOPHEN TAB 325 MG TAB PO PRN (17:21)
[2016-08-15] MEDS ORDERED: ALBUTEROL NEBULIZED 2.5 MG/3 ML INHALATION PRN (17:24)
[2016-08-15] MEDS ORDERED: CYCLOBENZAPRINE 5 MG TAB PO PRN (17:24)
[2016-08-15] MEDS ORDERED: THIAMINE 100 MG TAB PO SCH (18:00)
[2016-08-15] MEDS: PANTOPRAZOLE 40 MG/10 ML VIAL IV SCH (18:53)
[2016-08-15 19:03] VITALS: BMI 25.0
[2016-08-15] MEDS ORDERED: ZOLPIDEM 5 MG TAB PO PRN (19:52)
[2016-08-15] MEDS ORDERED: SODIUM CHLORIDE 0.9% 1,000 ML with POTASSIUM CHLORIDE 20 MEQ, MVI, ADULT NO.4 WITH VIT ... IV SCH ×5 (21:00)
[2016-08-15] MEDS ORDERED: MIRTAZAPINE 15 MG TAB PO SCH (21:00)
[2016-08-15] MEDS: GABAPENTIN 300 MG CAP PO SCH (21:30)
[2016-08-15] MEDS: HYDROcodone/APAP 10-325MG 1 EACH TAB PO PRN (21:30)
[2016-08-15] MEDS: ATENOLOL 50 MG TAB PO SCH (21:30)
[2016-08-16] MEDS ORDERED: DILTIAZEM 125 MG in SODIUM CHLORIDE 0.9% 100 ML IV SCH (01:30)
[2016-08-16 03:42] VITALS: RESP 18
[2016-08-16] MEDS: HYDROcodone/APAP 10-325MG 1 EACH TAB PO PRN ×3 (03:58→16:24)
[2016-08-16] MEDS: ENOXAPARIN 80 MG/0.8 ML SYRINGE SQ SCH ×2 (03:59→12:46)
[2016-08-16 06:45] LABS: ALT 40 U/L (9-52); AST 43 U/L (14-36); Alkaline Phosphatase 115 U/L (38-126); Anion Gap 7 mmol/L; Blood Urea Nitrogen 11 mg/dL (7-17); Calcium 8.7 mg/dL (8.4-10.2); Carbon Dioxide 26 mmol/L (22-30); Chloride 101 mmol/L (98-107); Glucose 100 mg/dL (74-99); Non-African American GFR(MDRD) >60 (>60 ml/min/1.73 sqM); Potassium 4.2 mmol/L (3.5-5.1); Sodium 134 mmol/L (137-145); Total Bilirubin 1.4 mg/dL (0.2-1.3); Total Protein 5.8 g/dL (6.3-8.2)
--- NOTE | 2016-08-16 06:48 | HP ---
DATE OF ADMISSION: CHIEF COMPLAINT: Change in mental status. HISTORY OF PRESENT ILLNESS: This 56-year-old woman with a past medical history of multiple medical problems including history of EtOH, history of hypertension, history of fibromyalgia, bariatric surgery, anxiety, depression, history of heavy alcohol abuse, history of THC, history of prescription drug abuse and history of drinking vodka daily being followed by Dr. Fuad Patel in the outpatient setting was taken to [facility] with complaints and features of alcohol intoxication. The family brought the patient to the emergency room. The patient was admitted for further evaluation and treatment. The patient is confused and the alcohol level was found to be 398. THC was also positive. There is no history of any fever or rigors. No history of headache, loss of consciousness or seizures. The patient also apparently had evaluation by Dr. Sullivan on the of this month. PAST MEDICAL HISTORY: History of EtOH, history of depression, history of fibromyalgia, history of hypertension. Medications prior to admission include: 1. K-Dur 20 mEq p.o. daily. 2. Ventolin HFA 1 to 2 puffs q.i.d. p.r.n. 3. Remeron 15 to 30 mg q.h.s. 4. Flexeril 5 mg t.i.d. p.r.n. 5. Xanax 0. 25 b.i.d. p.r.n. 6. Duragesic patch 50 mcg q.72 hours. 7. Wellbutrin XL 300 mg p.o. daily. 8. Ambien 5 mg q.h.s. 9. [place] 10 mg q.6 p.r.n. 10. Gabapentin 600 mg p.o. t.i.d. Allergies are none. FAMILY HISTORY: No history of heart disease or strokes in the family. SOCIAL HISTORY: History of smoking previously. History of THC. alcohol a fifth vodka at this time. REVIEW OF SYSTEMS: ENT: No diminished hearing or diminished vision. CARDIOVASCULAR: No angina. RESPIRATORY: No cough or hemoptysis. GI: No nausea. : No dysuria. NERVOUS SYSTEM: No numbness or weakness. ALLERGY/IMMUNOLOGY: No asthma or hayfever. MUSCULOSKELETAL: As mentioned earlier. HEMATOLOGY/ONCOLOGY: No history of anemia. ENDOCRINE: No history of diabetes or hypothyroidism. CONSTITUTIONAL: As mentioned earlier. DERMATOLOGY: Negative. RHEUMATOLOGY: Negative. PSYCHIATRY: As mentioned earlier. PHYSICAL EXAMINATION: The patient is alert and oriented x3. Pulse 98, blood pressure 131/78, respirations 19, temperature 97.3, pulse ox 96% on room air. HEENT: Conjunctivae normal. Oral mucosa moist. NECK: No jugular venous distention. No carotid bruit. No lymph node enlargement. CARDIOVASCULAR: S1 and S2 muffled. No S3, no S4. RESPIRATORY: Breath sounds diminished at the bases. A few scattered rhonchi, no crackles. ABDOMEN: Soft, nontender. No mass palpable. LEGS: No edema, no swelling. NERVOUS SYSTEM: Higher function as mentioned earlier. Moves all 4 limbs. Mild otherwise no significant weakness noted. SKIN: No ulcers, rashes or bleeding. LYMPHATICS: No lymphadenopathy of neck, axillae or groin. JOINTS: No active arthropathy. LABS: WBC 16.4, hemoglobin 16.4. Otherwise, AST 68, alkaline phosphatase 148. Drug screen is positive for THC , alcohol 398. ASSESSMENT: 1. Acute alcoholic intoxication. 2. Change in mental status, metabolic encephalopathy secondary to alcohol. 3. Early delirium tremens. 4. Increased AST with mild alcoholic hepatitis. 5. Increased WBC of undetermined origin. 6. Increased hemoglobin. 7. Polycythemia. 8. History of hypertension. 9. History of bariatric surgery. 10. History of right lung resection and tumor removal. 11. Anxiety, depression, not otherwise specified. 12. Polysubstance abuse including alcohol, smoking, THC and prescription drug abuse. 13. Hypertension. 14. FULL CODE. RECOMMENDATIONS AND DISCUSSION: This 56-year-old woman who presented with multiple complex medical issues. Will monitor the patient closely. DVT prophylaxis. CIWA protocol. Other than that, will resume the home medications, supplement multivitamins. Otherwise, DT precautions. Guarded prognosis because of multiple complex medical issues. See orders for details. Repeat labs will be ordered. Prognosis guarded because of multiple complex medical issues. Social Service will be consulted. Rehab and AA meetings was suggested to the patient. Patient understands and agrees. Further recommendations to follow. MTDD
[2016-08-16 07:03] LABS: Basophils # (A) 0.1 k/uL (0-0.2); Basophils % (A) 1 %; CH 33.1; CHCM 33.7; Eosinophils # (A) 0.1 k/uL (0-0.7); Eosinophils % (A) 1 %; HCT 41.4 % (34.0-46.0); HDW 2.32; HGB 13.7 gm/dL (11.4-16.0); Luc # (Auto) 0.33; Luc % (Auto) 3; Lymphocytes # (A) 2.5 k/uL (1.0-4.8); Lymphocytes % (A) 21 %; MCH 32.7 pg (25.0-35.0); MCHC 33.2 g/dL (31.0-37.0); MCV 98.6 fL (80.0-100.0); Mean Platelet Volume 7.8; Monocytes # (A) 0.8 k/uL (0-1.0); Monocytes % (A) 7 %; Neutrophils # (A) 8.1 k/uL (1.3-7.7); Neutrophils % (A) 68 %; RDW 14.1 % (11.5-15.5); WBC 11.9 k/uL (3.8-10.6); WBC (Perox) 12.24
[2016-08-16] MEDS: GABAPENTIN 300 MG CAP PO SCH ×2 (08:01→16:21)
[2016-08-16] MEDS: ATENOLOL 50 MG TAB PO SCH (08:01)
[2016-08-16] MEDS: PANTOPRAZOLE 40 MG/10 ML VIAL IV SCH (08:13)
[2016-08-16] MEDS ORDERED: ENOXAPARIN 80 MG/0.8 ML SYRINGE SQ SCH (09:00)
[2016-08-16] MEDS ORDERED: ENOXAPARIN 40 MG/0.4 ML SYRINGE SQ SCH (09:00)
[2016-08-16] MEDS ORDERED: POTASSIUM CHLORIDE ER 20 MEQ TAB.ER PO SCH (09:00)
[2016-08-16] MEDS ORDERED: buPROPion XL 300 MG TAB.ER.24H PO SCH (09:00)
[2016-08-16 11:45] LABS: Appearance,Urine Cloudy (Clear); Bacteria,Urine Moderate /hpf; Bilirubin,Urine Negative (Negative); Glucose,Urine (UA) Negative (Negative); Ketones,Urine Negative (Negative); Leukocyte Esterase,Urine Small (Negative); Nitrite,Urine Negative (Negative); PH, Urine 6.5 (5.0-8.0); Particle Count 98119; Protein,Urine Negative (Negative); Specific Gravity,Urine 1.008 (1.001-1.035); Squamous Epithelial Cell,Urine 4 /hpf (0-4); UA Billing (MACRO vs. MICRO) MICRO; WBC,Urine 6 /hpf (0-5)
[2016-08-16] MEDS ORDERED: MULTIVITAMINS, THERA 1 EACH TAB PO SCH (12:00)
[2016-08-16 12:21] VITALS: BP 107/71; PULSE 75; TEMP 97.1
[2016-08-16] MEDS ORDERED: NICOTINE 21MG/24HR PATCH TRANSDERM SCH (12:30)
[2016-08-16] MEDS: DILTIAZEM ORAL 30 MG TAB PO SCH ×2 (12:46→16:21)
--- NOTE | 2016-08-17 19:03 | DS ---
DATE OF ADMISSION: 08/15/2016 DATE OF DISCHARGE: 08/16/2016 FINAL DIAGNOSES: 1. Acute alcohol intoxication. 2. Change in mental status, metabolic encephalopathy secondary to alcohol. 3. Early delirium tremens. 4. Urinary tract infection. 5. Increased AST with mild alcoholic hepatitis. 6. Increased white count secondary to urinary tract infection. 7. Increased hemoglobin. 8. Polycythemia. 9. History of hypertension. 10. History of bariatric surgery. 11. History of right lung resection and tumor removal. 12. Anxiety, depression not otherwise specified. 13. Polysubstance abuse, including alcohol, smoking, tetrahydrocannabinol and prescription drug abuse. 14. Hypertension. 15. FULL CODE. DISCHARGE DISPOSITION: The patient will be discharged in stable condition with guarded prognosis. Patient will be discharged after clearance from Psychiatry. HISTORY OF PRESENT ILLNESS: This 56-year-old woman with a past medical history of multiple medical problems, being followed by Dr. Fuad Patel in the outpatient setting, was admitted with alcohol intoxication and multiple other complex medical issues. She has improved significantly. Dr. Cunningham also saw the patient for cardiac rhythm abnormalities. Final report is pending at this time; to be followed up in the outpatient setting. On exam, vitals are stable. CARDIOVASCULAR SYSTEM: S1, S2 muffled. RESPIRATORY SYSTEM: Breath sounds diminished at the bases. ABDOMEN: Soft. NERVOUS SYSTEM: No focal deficit. Patient had features of UTI. DISCHARGE ADVICE AND MEDICATIONS: 1. Diet is cardiac. 2. Activity limited until followup. 3. Follow up with Dr. Fuad Patel in 2 to 3 days. 4. Follow up with Dr. Cunningham as advised. 5. Follow up with Psychiatry, Dr. Sullivan, as advised. 6. Xanax 0.5 b.i.d. p.r.n. 7. Ventolin 1 to 2 puffs q.i.d. p.r.n. 8. Tenormin 50 mg p.o. b.i.d. 9. Flexeril 5 mg p.o. t.i.d. p.r.n. 10. Cardizem 30 mg p.o. t.i.d. 11. Folic acid 1 mg daily. 12. Gabapentin 600 mg p.o. t.i.d. 13. [place] 10 mg q.6 p.r.n. 14. Ativan 0.5 mg p.o. t.i.d. 15. Remeron 15-30 mg p.o. at bedtime. 16. Multivitamins 1 p.o. daily. 17. Habitrol 21 daily. 18. K-Dur 20 mEq p.o. daily. 19. Bactrim DS one p.o. b.i.d. for 4 days. 20. Thiamine 100 mg p.o. daily. 21. Ambien 5 mg at bedtime. 22. Wellbutrin XL 300 mg p.o. daily. 23. Fentanyl patch 50 mcg q.72 hours.
== END 2016-08-16 22:00 | disposition home or self-care (01) ==
LOC: EC 14:39 → 4MS4W 17:22 → 6SEL 08-16 01:51
PROVIDERS: ADMIT Internal Medicine; ATTEND Internal Medicine
DX: F10.121 Alcohol abuse with intoxication delirium (principal); G93.41 Metabolic encephalopathy; N39.0 Urinary tract infection, site not specified; M79.7 Fibromyalgia; F32.9 Major depressive disorder, single episode, unspecified; T51.0X1A Toxic effect of ethanol, accidental (unintentional), initial encounter; Y90.8 Blood alcohol level of 240 mg/100 ml or more; K70.10 Alcoholic hepatitis without ascites; D75.1 Secondary polycythemia; I10 Essential (primary) hypertension; Z98.84 Bariatric surgery status; F41.9 Anxiety disorder, unspecified; F19.129 Other psychoactive substance abuse with intoxication, unspecified; Z79.899 Other long term (current) drug therapy; Z87.891 Personal history of nicotine dependence; Z90.2 Acquired absence of lung [part of]; Z79.891 Long term (current) use of opiate analgesic
CPT/HCPCS: 36415; 93005; 80053 ×2; 85025 ×2; 81001; 80306; 80320; 87086; 87077; 87186; 87502; 96361 ×2; 96372; 99285; G0378 ×2; S4990; J2060; J3411; J3480; J1650; C9113; 96375

== ENCOUNTER → 2016-08-22 | Outpatient (CLI) | payer OTHER ==
[2016-08-22 14:53] LABS: CH 32.8; CHCM 31.9; HCT 46.6 % (34.0-46.0); HDW 2.16; HGB 14.8 gm/dL (11.4-16.0); MCH 32.8 pg (25.0-35.0); MCHC 31.7 g/dL (31.0-37.0); MCV 103.4 fL (80.0-100.0); Macrocytosis Slight; RBC 4.51 m/uL (3.80-5.40); WBC 9.3 k/uL (3.8-10.6)
[2016-08-22 15:01] LABS: ALT 32 U/L (9-52); AST 20 U/L (14-36); Alkaline Phosphatase 98 U/L (38-126); Anion Gap 10 mmol/L; Blood Urea Nitrogen 17 mg/dL (7-17); Calcium 9.4 mg/dL (8.4-10.2); Carbon Dioxide 29 mmol/L (22-30); Chloride 101 mmol/L (98-107); Glucose 89 mg/dL (74-99); Non-African American GFR(MDRD) >60 (>60 ml/min/1.73 sqM); Potassium 4.5 mmol/L (3.5-5.1); Sodium 140 mmol/L (137-145); Total Bilirubin 0.4 mg/dL (0.2-1.3); Total Protein 6.9 g/dL (6.3-8.2)
== END | disposition home or self-care (01) ==
LOC: LABWHC1 14:26
PROVIDERS: ATTEND Nurse Practitioner
DX: K70.10 Alcoholic hepatitis without ascites (principal)
CPT/HCPCS: 36415; 80053; 85027

== ENCOUNTER → 2017-02-02 | Outpatient (CLI) | payer OTHER ==
--- NOTE | 2017-02-02 18:14 | ECHOF ---
Referral Reason:I27.2 Pulmonary Hypertension MEASUREMENTS -------- HEIGHT: 160.0 cm WEIGHT: 64.9 kg BP: 120/65 RVIDd: 2.8 cm (< 3.3) IVSd: 0.9 cm (0.6 - 1.1) LVIDd: 4.5 cm (3.9 - 5.3) LVPWd: 0.9 cm (0.6 - 1.1) IVSs: 1.4 cm LVIDs: 2.8 cm LVPWs: 1.4 cm LAESV Index (A-L): 40.58 ml/m Ao Diam: 3.2 cm (2.0 - 3.7) AV Cusp: 2.1 cm (1.5 - 2.6) LA Diam: 3.9 cm (2.7 - 3.8) MV EXCURSION: 11.388 mm (> 18.000) MV EF SLOPE: 50 mm/s (70 - 150) EPSS: 0.7 cm MV E Arnaud: 0.63 m/s MV DecT: 351 ms MV A Arnaud: 0.81 m/s MV E/A Ratio: 0.78 RAP: 5.00 mmHg RVSP: 53.16 mmHg FINDINGS -------- Sinus rhythm. This was a technically good study. The left ventricular size is normal. Left ventricular wall thickness is normal. Overall left ventricular systolic function is normal with, an EF between 60 - 65 %. The right ventricle is normal in size and function. LA is severely dilated >40 ml/m2 RA appears enlarged. Aortic valve is trileaflet and is mildly thickened. There is no evidence of aortic regurgitation. There is no evidence of aortic stenosis. The mitral valve leaflets are mild to moderately thickened. Mild mitral annular calcification present. Moderate mitral regurgitation is present. Moderate tricuspid regurgitation present. There is mild to moderate pulmonary hypertension. The right ventricular systolic pressure, as measured by Doppler, is 53.16mmHg. Trace/mild (physiologic) pulmonic regurgitation. The aortic root size is normal. Normal inferior vena cava with normal inspiratory collapse consistent with estimated right atrial pressure of 5 mmHg. The pericardium is normal. There is no pericardial effusion. CONCLUSIONS -------- 1. Sinus rhythm. 2. Moderate mitral regurgitation is present. 3. Moderate tricuspid regurgitation present. 4. There is mild to moderate pulmonary hypertension. 5. The right ventricular systolic pressure, as measured by Doppler, is 53.16mmHg. 6. Trace/mild (physiologic) pulmonic regurgitation. 7. The aortic root size is normal. 8. There is no pericardial effusion. 9. This was a technically good study. 10. The left ventricular size is normal. 11. Overall left ventricular systolic function is normal with, an EF between 60 - 65 %. 12. LA is severely dilated >40 ml/m2 13. RA appears enlarged. 14. Aortic valve is trileaflet and is mildly thickened. 15. The mitral valve leaflets are mild to moderately thickened. 16. Mild mitral annular calcification present. FOOD PRODUCT INSPECTOR: Melissa Keith RDCS
== END | disposition home or self-care (01) ==
LOC: RADECHMAIN 15:32
PROVIDERS: ATTEND Family Medicine
DX: I08.3 Combined rheumatic disorders of mitral, aortic and tricuspid valves (principal); I27.2 Other secondary pulmonary hypertension
CPT/HCPCS: 93306

== ENCOUNTER → 2019-04-17 | Outpatient (CLI) | payer OTHER ==
--- NOTE | 2019-04-18 11:47 | ECHOF ---
Referral Reason:I34.0 non rheaumatic mitral regurgitation MEASUREMENTS -------- HEIGHT: 157.5 cm WEIGHT: 67.1 kg BP: RVIDd: 4.0 cm (< 3.3) IVSd: 1.2 cm (0.6 - 1.1) LVIDd: 3.8 cm (3.9 - 5.3) LVPWd: 1.3 cm (0.6 - 1.1) IVSs: 1.5 cm LVIDs: 2.6 cm LVPWs: 1.4 cm LAESV Index (A-L): 57.66 ml/m Ao Diam: 3.4 cm (2.0 - 3.7) AV Cusp: 2.2 cm (1.5 - 2.6) LA Diam: 5.0 cm (2.7 - 3.8) MV EXCURSION: 15.618 mm (> 18.000) MV EF SLOPE: 63 mm/s (70 - 150) EPSS: 0.7 cm MV E Arnaud: 0.80 m/s MV DecT: 232 ms MV A Arnaud: 0.86 m/s MV E/A Ratio: 0.93 RAP: 5.00 mmHg RVSP: 57.60 mmHg TAPSE: 23.25 mm FINDINGS -------- Sinus rhythm. This was a technically good study. The left ventricular size is normal. There is mild concentric left ventricular hypertrophy. Overa ll left ventricular systolic function is normal with, an EF between 60 - 65 %. Mitral Doppler inflo w pattern suggests diastolic filling abnormality 12.92. The right ventricle is mild to moderately enlarged. LA is severely dilated >40 ml/m2 The right atrium is mildly enlarged. Interatrial and interventricular septum intact. Mobile interatrial septum. The aortic valve is trileaflet and appears structurally normal. There is mild aortic valve sclerosi s. There is no evidence of aortic regurgitation. There is no evidence of aortic stenosis. Moderate mitral annular calcification present. Moderate mitral regurgitation is present. Moderate tricuspid regurgitation present. There is moderate pulmonary hypertension. The right arlen tricular systolic pressure, as measured by Doppler, is 57.60mmHg. Trace/mild (physiologic) pulmonic regurgitation. The aortic root size is normal. The inferior vena cava is mildly dilated. There is no pericardial effusion. CONCLUSIONS -------- 1. Sinus rhythm. 2. This was a technically good study. 3. The left ventricular size is normal. 4. There is mild concentric left ventricular hypertrophy. 5. Overall left ventricular systolic function is normal with, an EF between 60 - 65 %. 6. Mitral Doppler inflow pattern suggest diastolic filling abnormality 12.92. 7. The right ventricle is mild to moderately enlarged. 8. LA is severely dilated >40 ml/m2 9. The right atrium is mildly enlarged. 10. Interatrial and interventricular septum intact. 11. Mobile interatrial septum. 12. The aortic valve is trileaflet and appears structurally normal. 13. There is mild aortic valve sclerosis. 14. There is no evidence of aortic regurgitation. 15. There is no evidence of aortic stenosis. 16. Moderate mitral annular calcification present. 17. Moderate tricuspid regurgitation present. 18. There is moderate pulmonary hypertension. 19. The right ventricular systolic pressure, as measured by Doppler, is 57.60mmHg. 20. Trace/mild (physiologic) pulmonic regurgitation. 21. The aortic root size is normal. 22. The inferior vena cava is mildly dilated. 23. There is no pericardial effusion. CERTIFIED SCRUB TECH: Maureen Madison RDCS
== END | disposition home or self-care (01) ==
LOC: RADECHMAIN 13:37
PROVIDERS: ATTEND Family Medicine
DX: I07.1 Rheumatic tricuspid insufficiency (principal); I27.20 Pulmonary hypertension, unspecified; I37.1 Nonrheumatic pulmonary valve insufficiency; I35.8 Other nonrheumatic aortic valve disorders; I05.8 Other rheumatic mitral valve diseases
CPT/HCPCS: 93306

== ENCOUNTER 2020-02-21 07:58 | Emergency (ER) | payer OTHER ==
[2020-02-21 08:08] VITALS: RESP 16; TEMP 98
[2020-02-21] MEDS ORDERED: fentaNYL (PF) 50 MCG/ML 2 ML AMP IV STA (08:11)
--- NOTE | 2020-02-21 08:28 | ED ---
Fall HPI - General Chief Complaint: Fall Stated Complaint: Fall Time Seen by Provider: 02/21/20 08:04 Source: patient Mode of arrival: EMS - History of Present Illness Initial Comments: This is a 59-year-old female who states she tripped over her dog when she was traveling the dog out around 3 AM this morning. She states she fell onto her right shoulder. He denies any head neck or back pain or other extremity pain just pain to the right shoulder. She came in by EMS because the pain was unrelenting. She denies again any other injury loss of function to her upper or lower extremity is decreased range of motion of the right upper extremity secondary to pain. MD Complaint: fall - Related Data Home Medications Medication Instructions Recorded Confirmed fentaNYL [Duragesic 50MCG/HR] 1 patch TRANSDERM Q72H 10/24/13 08/15/16 Zolpidem [Ambien] 5 mg PO HS PRN 06/22/16 08/15/16 buPROPion HCL [Wellbutrin XL] 300 mg PO DAILY 06/22/16 08/15/16 ALPRAZolam [Xanax] 0.25 mg PO BID PRN 08/15/16 08/15/16 Albuterol Inhaler (Mhu) [Ventolin 1 - 2 puff INHALATION RT-QID PRN 08/15/16 08/15/16 Hfa Inhaler (Mhu)] Cyclobenzaprine [Flexeril] 5 mg PO TID PRN 08/15/16 08/15/16 Mirtazapine [Remeron] 15 - 30 mg PO HS 08/15/16 08/15/16 Potassium Chloride ER [K-Dur 20] 20 meq PO DAILY 08/15/16 08/15/16 Previous Rx's Medication Instructions Recorded Gabapentin 600 mg PO TID #10 tablet 06/25/16 HYDROcodone/APAP 10-325MG [[place] 1 tab PO Q6H PRN #10 tab 06/25/16 10-325] atenoloL [Tenormin] 50 mg PO BID #20 tab 06/25/16 Diltiazem Oral [Cardizem*] 30 mg PO TID #90 tab 08/16/16 Folic Acid 1 mg PO DAILY #30 tablet 08/16/16 LORazepam [Ativan] 0.5 mg PO TID PRN #20 tab 08/16/16 Multivitamins, Thera [Multivitamin 1 each PO DAILY@1200 #30 tab 08/16/16 (formulary)] Nicotine 21Mg/24Hr Patch [Habitrol] 1 each TRANSDERM DAILY #30 patch 08/16/16 Sulfamethox-Tmp 800-160Mg [Bactrim 1 tab PO Q12HR #8 tab 08/16/16 DS 800-160 mg] Thiamine [Vitamin B-1] 100 mg PO DAILY #30 tab 08/16/16 Ibuprofen 800 mg PO Q6HR PRN #20 tablet 02/21/20 Allergies Allergy/AdvReac Type Severity Reaction Status Date / Time No Known Allergies Allergy Verified 02/21/20 08:08 Review of Systems ROS Statement: Those systems with pertinent positive or pertinent negative responses have been documented in the HPI. ROS Other: All systems not noted in ROS Statement are negative. Past Medical History Additional Past Medical History / Comment(s): fibromyalgia heart valve leakage History of Any Multi-Drug Resistant Organisms: None Reported Past Surgical History: Bariatric Surgery Additional Past Surgical History / Comment(s): right lung resection with removal and tumor removal Past Anesthesia/Blood Transfusion Reactions: Unable to Obtain Past Psychological History: Anxiety, Depression Smoking Status: Current every day smoker Past Alcohol Use History: Abuse, Heavy Past Drug Use History: Marijuana, Prescription Drug Abuse - Past Family History Mother History Unknown: Yes General Exam - General Exam Comments Initial Comments: This is a well-developed well-nourished awake alert oriented 3 female Limitations: no limitations General appearance: alert, anxious, in distress Head exam: Present: atraumatic, normocephalic, normal inspection Eye exam: Present: normal appearance, PERRL, EOMI. Absent: scleral icterus, conjunctival injection, periorbital swelling ENT exam: Present: normal exam, mucous membranes moist Neck exam: Present: normal inspection, full ROM, other (No stridor JVD or bruits). Absent: tenderness, meningismus, lymphadenopathy Respiratory exam: Present: normal lung sounds bilaterally. Absent: respiratory distress, wheezes, rales, rhonchi, stridor Cardiovascular Exam: Present: regular rate, normal rhythm, normal heart sounds. Absent: systolic murmur, diastolic murmur, rubs, gallop, clicks GI/Abdominal exam: Absent: distended, tenderness, guarding, rebound, rigid Extremities exam: Present: normal capillary refill. Absent: full ROM (Tenderness to palpation of the right shoulder especially the lateral aspect of the proximal humerus. No distal sensorimotor or basilar deficits. No other injuries noted.), tenderness, pedal edema, joint swelling, calf tenderness Back exam: Present: normal inspection Neurological exam: Present: alert, oriented X3, CN II-XII intact Psychiatric exam: Present: normal affect, anxious Skin exam: Present: warm, dry, intact, normal color. Absent: rash Course Vital Signs 02/21/20 08:04 Temperature 98 F Pulse Rate 85 Respiratory 16 Rate Blood Pressure 121/86 O2 Sat by Pulse 95 Oximetry - Reevaluation(s) Reevaluation #1: 02/21/20 10:15 Did discuss the findings with Dr. Mesa. He did review the imaging. Patient will be discharged with follow-up in the office. She'll be placed in a sling. Medical Decision Making - Medical Decision Making I did review the imaging and report and did discuss the findings with Dr. Mesa. Patient be discharged with a sling. She'll be followed up in the office. - Radiology Data Radiology results: report reviewed (I did review the imaging and report evidence of a proximal humerus fracture and appears to be 3 fragments.), image reviewed Disposition Clinical Impression: Fall, Comminuted right humeral fracture Disposition: HOME SELF-CARE Condition: Good Instructions (If sedation given, give patient instructions): Fall Prevention (ED), Proximal Humerus Fracture (ED) Prescriptions: Ibuprofen 800 mg PO Q6HR PRN #20 tablet PRN Reason: Pain Is patient prescribed a controlled substance at d/c from ED?: No Referrals: Aldair Patel MD [Primary Care Provider] - 1-2 days Milton Mesa MD [STAFF PHYSICIAN] - 1-2 days
--- NOTE | 2020-02-21 08:54 | XR ---
EXAMINATION TYPE: XR shoulder complete RT DATE OF EXAM: 02/21/2020 CLINICAL HISTORY: Pain after falling injury. TECHNIQUE: Three views of the right shoulder are obtained. COMPARISON: None. FINDINGS: There is acute comminuted displaced fracture through surgical neck right proximal humerus. There are suspected 3 fracture fragments. Distal component is anteriorly displaced by roughly 4.5 c m. Slight anterior subluxation with inferior positioning of humeral head relative to glenoid cavity. The acromioclavicular joint shows moderate to severe narrowing. The visualized ribs are intact. Surg ical sutures right mid lung incidentally noted. IMPRESSION: There is acute displaced comminuted fracture surgical neck right proximal humerus. Anter ior glenohumeral joint subluxation noted.
[2020-02-21] MEDS ORDERED: ACET/COD 300 MG/30 MG STARTER PACK 6 TAB BTL PO STA (10:25)
[2020-02-21 10:37] VITALS: BP 128/78; PULSE 78
== END 2020-02-21 10:36 | disposition home or self-care (01) ==
LOC: EC 07:58
DX: S42.211A Unspecified displaced fracture of surgical neck of right humerus, initial encounter for closed fracture (principal); F41.9 Anxiety disorder, unspecified; F32.9 Major depressive disorder, single episode, unspecified; M79.7 Fibromyalgia; F17.200 Nicotine dependence, unspecified, uncomplicated; Z79.891 Long term (current) use of opiate analgesic; Z79.899 Other long term (current) drug therapy; W01.0XXA Fall on same level from slipping, tripping and stumbling without subsequent striking against object, initial encounter; Y93.K1 Activity, walking an animal; Y92.009 Unspecified place in unspecified non-institutional (private) residence as the place of occurrence of the external cause
CPT/HCPCS: 73030; 99283; 96374; 29125; J3010

== ENCOUNTER → 2020-02-24 | Outpatient (CLI) | payer OTHER ==
--- NOTE | 2020-02-24 14:12 | CT ---
EXAMINATION TYPE: CT shoulder RT wo con DATE OF EXAM: 02/24/2020 COMPARISON: Right shoulder 15/11/2019 HISTORY: Right shoulder fx post fall injury CT DLP: 198.3 mGycm Automated exposure control for dose reduction was used. FINDINGS: The acromioclavicular junction is normal. Portion of the clavicle visualized within the [id number] is normal. Glenoid appears intact. There is a comminuted impacted fracture at the neck of the humerus. The humeral head articulates with the glenoid. IMPRESSION: IMPACTED COMMINUTED FRACTURE OF THE HUMERUS
== END | disposition home or self-care (01) ==
LOC: RADCTMAIN 12:04
PROVIDERS: ATTEND Orthopaedic Surgery Orthopaedic Surgery of the Spine
DX: S42.351A Displaced comminuted fracture of shaft of humerus, right arm, initial encounter for closed fracture (principal); E66.3 Overweight

== ENCOUNTER → 2020-06-25 | Outpatient (CLI) | payer OTHER ==
--- NOTE | 2020-06-25 16:30 | MR ---
EXAMINATION TYPE: MR brain wo con DATE OF EXAM: 06/25/2020 COMPARISON: CT brain February 24, 2014 HISTORY: Memory loss. TECHNIQUE: Multiplanar, multisequence imaging of the brain and brainstem is performed without IV cont rast. FINDINGS: Diffusion weighted images demonstrate no evidence of a recent infarct or other diffusion abnormality. There is artifact noted over the right temporal and cerebellar region making evaluation of this leve l suboptimal There is no worrisome extra-axial fluid collection. The ventricular system and cisternal spaces are normal in size and appearance. The brain volume is age appropriate. Scattered foci of T2 hyperintens ity are seen throughout the white matter bilaterally. Approximately 40-50 tiny scattered lesions. Midline structures demonstrate normal morphology. The craniocervical junction appears within normal limits. Normal vascular flow voids are present. Some distortion of level of the globes. IMPRESSION: Moderate nonspecific white matter changes. Findings favored on the basis of product of ch ronic small vessel ischemic change in patient of this age.
== END | disposition home or self-care (01) ==
LOC: RADMRIMAIN 14:58
PROVIDERS: ATTEND Family Medicine
DX: R90.89 Other abnormal findings on diagnostic imaging of central nervous system (principal); I67.82 Cerebral ischemia
CPT/HCPCS: 70551

== ENCOUNTER → 2020-08-11 | Outpatient (CLI) | payer OTHER ==
[2020-08-11 18:12] LABS: Basophils # (A) 0.05 X 10*3/uL (0.00-0.10); Basophils % (A) 0.6 %; Eosinophils # (A) 0.22 X 10*3/uL (0.04-0.35); Eosinophils % (A) 2.6 %; HCT 38.5 % (37.2-46.3); HGB 12.1 g/dL (12.0-15.0); Lymphocytes # (A) 1.99 X 10*3/uL (0.90-5.00); Lymphocytes % (A) 23.3 %; MCHC 31.4 g/dL (32.0-37.0); MCV 95.5 fL (80.0-97.0); Mean Platelet Volume 10.2 fL (9.5-12.2); Monocytes # (A) 0.77 X 10*3/uL (0.20-1.00); Neutrophils # (A) 5.47 X 10*3/uL (1.80-7.70); Neutrophils % (A) 64.1 %; Platelet Count 299 X 10*3/uL (140-440); RBC 4.03 X 10*6/uL (4.10-5.20); WBC 8.53 X 10*3/uL (4.50-10.00)
[2020-08-11 19:11] LABS: Total Protein,CSF 24 mg/dL (12-60)
[2020-08-11 19:27] LABS: Appearance,CSF Clear; CSF Tube Number 4; CSF Tube Volume 2.1; Nucleated Cells, CSF 0 u/L (0-5); Red Blood Cell,CSF 1 u/L (0-10)
[2020-08-12 04:08] LABS: ALT 13 U/L (8-44); AST 20 U/L (13-35); African American GFR (CKD) 115.6 (60.0-200.0); Albumin/Globulin Ratio 1.57 (1.60-3.17); Alkaline Phosphatase 151 U/L (41-126); BUN/Creat Ratio 18.33 Ratio (12.00-20.00); Calcium 8.8 mg/dL (8.7-10.3); Carbon Dioxide 30.1 mmol/L (21.6-31.8); Chloride 102 mmol/L (96-109); Globulin 2.3 g/dL (1.6-3.3); Glucose 101 mg/dL (70-110); Non-African American GFR(CKD) 99.8 (60.0-200.0); Potassium 4.7 mmol/L (3.5-5.5); Sodium 136 mmol/L (135-145); Total Bilirubin 0.2 mg/dL (0.3-1.2); Total Protein 5.9 g/dL (6.2-8.2); Vitamin B12 >4000.0 pg/mL (211-911)
== END | disposition home or self-care (01) ==
LOC: LABWHC1 08:20
PROVIDERS: ATTEND Nurse Practitioner Acute Care
DX: H53.8 Other visual disturbances (principal)
CPT/HCPCS: 36415; 80053; 82040; 82042; 82306; 82607; 82784; 83916; 84157; 84207; 84439; 84443; 84481; 85025; 87801; 88108; 89050

== ENCOUNTER → 2021-05-11 | Outpatient (CLI) | payer OTHER ==
[2021-05-12 02:54] LABS: African American GFR (CKD) 111.9 (60.0-200.0); Albumin 4.1 g/dL (3.8-4.9); Albumin/Globulin Ratio 1.33 (1.60-3.17); Anion Gap 11.6 mmol/L (10.00-18.00); BUN/Creat Ratio 13.57 Ratio (12.00-20.00); Blood Urea Nitrogen 8.8 mg/dL (9.0-27.0); Calcium 9.3 mg/dL (8.7-10.3); Carbon Dioxide 27.8 mmol/L (20.0-27.5); Globulin 3.1 g/dL (1.6-3.3); Non-African American GFR(CKD) 96.6 (60.0-200.0); Potassium 4.1 mmol/L (3.5-5.5); T4, Free (Free Thyroxine) 1.21 ng/dL (0.800-1.800); Total Bilirubin 0.2 mg/dL (0.30-1.20); Total Protein 7.2 g/dL (6.2-8.2)
== END | disposition home or self-care (01) ==
LOC: LABWHC1 15:12
PROVIDERS: ATTEND Nurse Practitioner Acute Care
DX: I48.91 Unspecified atrial fibrillation (principal); E55.9 Vitamin D deficiency, unspecified; E03.9 Hypothyroidism, unspecified; R41.3 Other amnesia
CPT/HCPCS: 36415; 80053; 82306; 84439; 84443

== ENCOUNTER → 2021-07-09 | Outpatient (CLI) | payer OTHER ==
--- NOTE | 2021-07-09 20:00 | MR ---
EXAMINATION TYPE: MR shoulder RT wo con DATE OF EXAM: 07/09/2021 COMPARISON: Right shoulder x-ray 02/21/2020 HISTORY: S42.221D 2 part displaced fracture of surgical neck. Pain in shoulder, prior Fx Multiplanar multiecho imaging of the right shoulder performed without contrast. There is some deformity of the humeral neck related to old fracture. There is some edema at the fract ure site. Position not changed significantly compared to old exam. Fracture line partially visible. The subscapularis tendon is intact. Glenoid vesta appear intact. The AC joint is intact. The supraspi natus tendon appears fairly normal. There is no retraction. Biceps tendon is not well seen. Scapula a ppears intact. There are small shoulder joint effusion. IMPRESSION: Old humeral neck fracture with edema at the fracture site and apparent delayed union. No evidence of rotator cuff tear.
== END | disposition home or self-care (01) ==
LOC: RADMRIMAIN 10:38
PROVIDERS: ATTEND Orthopaedic Surgery Sports Medicine
DX: S42.221 2-part displaced fracture of surgical neck of right humerus (principal)

== ENCOUNTER → 2021-10-28 | Outpatient (CLI) | payer OTHER ==
[2021-10-28 22:24] LABS: Basophils # (A) 0.03 X 10*3/uL (0.00-0.10); Basophils % (A) 0.4 %; Eosinophils # (A) 0 X 10*3/uL (0.04-0.35); Eosinophils % (A) 0 %; HCT 36.6 % (37.2-46.3); HGB 10.8 g/dL (12.0-15.0); Immature Grans, Automated 0.5 %; Lymphocytes # (A) 1.19 X 10*3/uL (0.90-5.00); Lymphocytes % (A) 16.3 %; MCH 23.5 pg (27.0-32.0); MCHC 29.5 g/dL (32.0-37.0); MCV 79.7 fL (80.0-97.0); Monocytes # (A) 0.47 X 10*3/uL (0.20-1.00); Monocytes % (A) 6.4 %; NRBC Per 100 WBC 0 /100 WBCS (0.0-0.0); Neutrophils # (A) 5.58 X 10*3/uL (1.80-7.70); Neutrophils % (A) 76.4 %; Platelet Count 296 X 10*3/uL (140-440); RBC 4.59 X 10*6/uL (4.10-5.20); RDW 21.2 % (11.5-14.5); WBC 7.31 X 10*3/uL (4.50-10.00)
[2021-10-28 23:45] LABS: African American GFR (CKD) 111.1 (60.0-200.0); Albumin 3.7 g/dL (3.8-4.9); Albumin/Globulin Ratio 1.15 (1.60-3.17); BUN/Creat Ratio 13.27 Ratio (12.00-20.00); Blood Urea Nitrogen 8.8 mg/dL (9.0-27.0); Calcium 9.4 mg/dL (8.7-10.3); Carbon Dioxide 27.8 mmol/L (20.0-27.5); Globulin 3.2 g/dL (1.6-3.3); Non-African American GFR(CKD) 95.8 (60.0-200.0); Potassium 4.1 mmol/L (3.5-5.5); Total Bilirubin 0.2 mg/dL (0.30-1.20)
== END | disposition home or self-care (01) ==
LOC: LABWHC1 13:31
PROVIDERS: ATTEND Nurse Practitioner Acute Care
DX: E55.9 Vitamin D deficiency, unspecified (principal); E53.9 Vitamin B deficiency, unspecified; R90.82 White matter disease, unspecified; R41.3 Other amnesia; R42 Dizziness and giddiness
CPT/HCPCS: 36415; 80053; 82306; 82607; 84207; 85025

== ENCOUNTER → 2022-03-10 | Outpatient (CLI) | payer OTHER ==
--- NOTE | 2022-03-10 12:15 | XR ---
EXAMINATION TYPE: XR chest 2V DATE OF EXAM: 03/10/2022 COMPARISON: Chest x-ray 10/24/2013 HISTORY: Abnormal echocardiogram, R0602,I27.2 TECHNIQUE: Frontal and lateral views of the chest are obtained. FINDINGS: There is no focal air space opacity, pleural effusion, or pneumothorax seen. The cardiac silhouette size is within normal limits. The osseous structures are remarkable for chronic fracture of the proximal right humerus, there is a spinal curvature and thoracic spondylosis. The aorta is de nse. Posterior right fifth rib has been resected, chronic finding. Prominent lung volume may be indic ative of underlying COPD. IMPRESSION: No acute cardiopulmonary process.
[2022-03-10 15:21] LABS: HCT 44.9 % (37.2-46.3); HGB 14.4 g/dL (12.0-15.0); MCH 28.2 pg (27.0-32.0); MCHC 32.1 g/dL (32.0-37.0); MCV 87.9 fL (80.0-97.0); NRBC Per 100 WBC 0 /100 WBCS (0.0-0.0); Platelet Count 261 X 10*3/uL (140-440); RBC 5.11 X 10*6/uL (4.10-5.20); RDW 23.4 % (11.5-14.5); WBC 8.09 X 10*3/uL (4.50-10.00)
[2022-03-10 16:23] LABS: ALT 109 U/L (8-44); AST 164 U/L (13-35); African American GFR (CKD) 92.9 (60.0-200.0); Albumin 4.7 g/dL (3.8-4.9); Albumin/Globulin Ratio 1.31 (1.60-3.17); Alkaline Phosphatase 215 U/L (41-126); BUN/Creat Ratio 13.25 Ratio (12.00-20.00); Bilirubin, Conjugated <0.20 mg/dL (0.20-0.40); Blood Urea Nitrogen 10.6 mg/dL (9.0-27.0); Calcium 9.8 mg/dL (8.7-10.3); Carbon Dioxide 27.5 mmol/L (20.0-27.5); Chloride 95 mmol/L (96-109); Chol/HDL Ratio 2.91 Ratio; Globulin 3.6 g/dL (1.6-3.3); Glucose 85 mg/dL (70-110); LDL Cholesterol,Calculated 108.3 mg/dL (0.0-131.0); Non-African American GFR(CKD) 80.1 (60.0-200.0); Potassium 4.1 mmol/L (3.5-5.5); Sodium 135 mmol/L (135-145); Total Protein 8.3 g/dL (6.2-8.2); VLDL Calculation 13.82 mg/dL (5.00-40.00)
== END | disposition home or self-care (01) ==
LOC: LABWHC1 10:01
PROVIDERS: ATTEND Internal Medicine Cardiovascular Disease
DX: I27.29 Other secondary pulmonary hypertension (principal); R06.02 Shortness of breath; I25.10 Atherosclerotic heart disease of native coronary artery without angina pectoris; E78.2 Mixed hyperlipidemia; E07.9 Disorder of thyroid, unspecified
CPT/HCPCS: 36415; 71046; 80053; 80061; 82248; 83880; 84443; 85027; 86141

== ENCOUNTER 2023-04-30 17:22 | Emergency (ER) | payer OTHER ==
[2023-04-30 18:15] VITALS: TEMP 98.7
--- NOTE | 2023-04-30 18:39 | ED ---
Female Urogenital HPI - General Source: patient, RN notes reviewed Mode of arrival: ambulatory Limitations: no limitations <Alexandria Mata - Last Filed: 04/30/23 18:38> - General Source: patient, RN notes reviewed Mode of arrival: ambulatory Limitations: no limitations - History of Present Illness MD Complaint: vaginal bleeding <Melodie Natarajan - Last Filed: 05/04/23 06:19> - General Chief complaint: Vaginal Bleeding Stated complaint: vaginal bleeding Time Seen by Provider: 04/30/23 18:38 - History of Present Illness Initial comments: Patient is 62-year-old female presented ER with chief complaint of vaginal bleeding. Patient gone for couple of months and yesterday started to clot very heavily. Patient denies any fevers or chills, or shortness of breath. (Alexandria Mata) This is a 62-year-old female who presents to the emergency department for vaginal bleeding. Patient is postmenopausal. States that this has been present for about 6 months and had been fairly consistent. However, states that yesterday the bleeding got much heavier and started to clot. At that point she was going through pads approximately every 20 minutes. She notes that since sitting in the emergency department waiting room, she has been wearing the same pad for approximately 4 hours, which is a large improvement. Denies any substantial abdominal or pelvic pain with this. She does not follow with an BLOOM CONVEYOR OPERATOR, but states that she has a history of atypical cells. She's not currently on hormone replacement. Denies any history of heart attacks or strokes. She is not taking any blood thinners. (Melodie Natarajan) - Related Data Home Medications Medication Instructions Recorded Confirmed fentaNYL [Duragesic 50MCG/HR] 1 patch TRANSDERM Q72H 10/24/13 08/15/16 Zolpidem [Ambien] 5 mg PO HS PRN 06/22/16 08/15/16 buPROPion HCL [Wellbutrin XL] 300 mg PO DAILY 06/22/16 08/15/16 ALPRAZolam [Xanax] 0.25 mg PO BID PRN 08/15/16 08/15/16 Albuterol Inhaler [Ventolin Hfa 1 - 2 puff INHALATION RT-QID PRN 08/15/16 08/15/16 Inhaler] Cyclobenzaprine [Flexeril] 5 mg PO TID PRN 08/15/16 08/15/16 Mirtazapine [Remeron] 15 - 30 mg PO HS 08/15/16 08/15/16 Potassium Chloride ER [K-Dur 20] 20 meq PO DAILY 08/15/16 08/15/16 Previous Rx's Medication Instructions Recorded Gabapentin 600 mg PO TID #10 tablet 06/25/16 HYDROcodone/APAP 10-325MG [[place] 1 tab PO Q6H PRN #10 tab 06/25/16 10-325] atenoloL [Tenormin] 50 mg PO BID #20 tab 06/25/16 Diltiazem Oral [Cardizem*] 30 mg PO TID #90 tab 08/16/16 Folic Acid 1 mg PO DAILY #30 tablet 08/16/16 LORazepam [Ativan] 0.5 mg PO TID PRN #20 tab 08/16/16 Multivitamins, Thera [Multivitamin 1 each PO DAILY@1200 #30 tab 08/16/16 (formulary)] Nicotine 21Mg/24Hr Patch [Habitrol] 1 each TRANSDERM DAILY #30 patch 08/16/16 Sulfamethox-Tmp 800-160Mg [Bactrim 1 tab PO Q12HR #8 tab 08/16/16 DS 800-160 mg] Thiamine [Vitamin B-1] 100 mg PO DAILY #30 tab 08/16/16 Ibuprofen 800 mg PO Q6HR PRN #20 tablet 02/21/20 Medroxyprogesterone Acetate 10 mg PO DAILY #30 tablet 05/01/23 Allergies Allergy/AdvReac Type Severity Reaction Status Date / Time No Known Allergies Allergy Verified 04/30/23 17:59 Review of Systems ROS Other: All systems not noted in ROS Statement are negative. <Alexandria Mata - Last Filed: 04/30/23 18:38> ROS Other: All systems not noted in ROS Statement are negative. <Melodie Natarajan - Last Filed: 05/04/23 06:19> ROS Statement: Those systems with pertinent positive or pertinent negative responses have been documented in the HPI. 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 Past Anesthesia/Blood Transfusion Reactions: Unable to Obtain Past Psychological History: Anxiety, Depression Smoking Status: Current every day smoker Past Alcohol Use History: Rare Past Drug Use History: Marijuana, Prescription Drug Abuse - Past Family History Mother History Unknown: Yes <Alexandria Mata - Last Filed: 04/30/23 18:38> General Exam Limitations: no limitations <Alexandria Mata - Last Filed: 04/30/23 18:38> Limitations: no limitations General appearance: alert, in no apparent distress Head exam: Present: atraumatic, normocephalic, normal inspection Respiratory exam: Present: normal lung sounds bilaterally. Absent: respiratory distress, wheezes, rales, rhonchi, stridor Cardiovascular Exam: Present: regular rate, normal rhythm, normal heart sounds. Absent: systolic murmur, diastolic murmur, rubs, gallop, clicks Neurological exam: Present: alert, oriented X3, CN II-XII intact Psychiatric exam: Present: normal affect, normal mood Skin exam: Present: warm, dry, intact, normal color. Absent: rash <Melodie Natarajan - Last Filed: 05/04/23 06:19> - General Exam Comments Initial Comments: Visual Physical Exam Vital signs reviewed General: Well-appearing, nontoxic, no acute distress. Head: Normocephalic, atraumatic Eyes: PERRLA, EOMI ENT: Airway patent Chest: Nonlabored breathing Skin: No visual rash, normal skin tone Neuro: Alert and oriented 3 Musculoskeletal: No gross abnormalities (Alexandria Mata) Course Vital Signs 04/30/23 04/30/23 17:55 23:58 Temperature 98.7 F Pulse Rate 69 78 Respiratory 16 18 Rate Blood Pressure 104/68 120/82 O2 Sat by Pulse 95 96 Oximetry Medical Decision Making <Alexandria Mata - Last Filed: 04/30/23 18:38> - Lab Data Result diagrams: 04/30/23 21:27 04/30/23 21:27 - Radiology Data Radiology results: report reviewed, image reviewed <Melodie Natarajan - Last Filed: 05/04/23 06:19> - Medical Decision Making I performed the quick note portion of the exam. Electronically signed by Alexandria Mata PA-C (Alexandria Mata) This is a 62-year-old female who presents to the emergency department for vaginal bleeding. Was pt. sent in by a medical professional or institution? @ -No Did you speak to anyone other than the patient for history? @ -No Did you review nursing and triage notes? @ -Yes, and I agree, it is accurate with regards to the patient's symptoms. Were old charts reviewed? @ -No Differential Diagnosis? @ -Differential Vaginal Bleeding: Spontaneous , threatened , molar , ectopic , incompetent cervix, placenta previa, uterine rupture, dysfunctional uterine bleeding, hemorrhage, uterine fibroids, malignancy, coagulopathy, PID, cervicitis, adenomyosis, vaginal trauma, this is not meant to be an all- inclusive list. EKG interpreted by me (3pts min.)? @ -Not obtained X-rays interpreted by me (1pt min.)? @ -Not obtained CT interpreted by me (1pt min.)? @ -Not obtained U/S interpreted by me (1pt. min.)? @ -Pelvic US obtained. My interpretation identifies a thickened endometrium. What testing was considered but not performed? (CT, X-rays, U/S, labs)? Why? @ -None What meds were considered but not given? Why? @ -None Did you discuss the management of the patient with other professionals? @ -No Did you reconcile home meds? @ -No Was smoking cessation discussed for >3mins.? @ -No Was critical care preformed (if so, how long)? @ -No Were there social determinants of health that impacted care today? How? (Homelessness, low income, unemployed, alcoholism, drug addiction, transportation, low edu. Level, literacy, decrease access to med. care, assisted, rehab)? @ -No Was there de-escalation of care discussed even if they declined? (Discuss DNR or withdrawal of care, Hospice)? @ -No What co-morbidities impacted this encounter? (DM, HTN, Smoking, COPD, CAD, Cancer, CVA, Hep., AIDS, mental health diagnosis, sleep apnea, morbid obesity)? @ -None Was patient admitted / discharged? @ -Discharged. Lab work obtained and found to be unremarkable, including a normal hemoglobin level. Urinalysis reveals a large amount of blood without signs of infection. Pelvic ultrasound obtained revealing a thickened endometrium, which is concerning given that she is postmenopausal and endometrial carcinoma is a consideration. Findings reviewed with the patient, and that she will likely need an endometrial biopsy for the endometrial hyperplasia. She was given information for B[facility] CONVEYOR OPERATOR follow-up. Advise she also reach out to her primary care provider in the morning to see if they can get her scheduled for a sooner follow-up appointment with BLOOM CONVEYOR OPERATOR, as this is something that will need to be addressed on a fairly urgent basis in order to begin the appropriate treatment. Undiagnosed new problem with uncertain prognosis? @ -None Drug Therapy requiring intensive monitoring for toxicity (Heparin, Nitro, Insulin, Cardizem)? @ -None Were any procedures done? @ -None Diagnosis/symptom? @ -Postmenopausal bleeding, endometrial hyperplasia Acute, or Chronic, or Acute on Chronic? @ -Chronic Uncomplicated (without systemic symptoms) or Complicated (systemic symptoms)? @ -Uncomplicated Side effects of treatment? @ -None Exacerbation, Progression, or Severe Exacerbation] @ -Progression Poses a threat to life or bodily function? @ -This will depend on the cause of the bleeding and endometrial hyperplasia. Return precautions reviewed in depth, the patient is instructed to return to the emergency department with any new, worsening, or concerning symptoms. Patient verbalized understanding. This case was discussed in detail with the attending ED physician, Dr. Ayala. Presentation, findings, and treatment plan discussed in detail as well. (Melodie Natarajan) - Lab Data Lab Results 04/30/23 04/30/23 04/30/23 Range/Units 21:27 21:27 21:27 WBC 7.0 (3.8-10.6) k/uL RBC 4.17 (3.80-5.40) m/uL Hgb 14.0 (11.4-16.0) gm/dL Hct 42.9 (34.0-46.0) % MCV 102.9 H (80.0-100.0) fL MCH 33.6 (25.0-35.0) pg MCHC 32.6 (31.0-37.0) g/dL RDW 13.2 (11.5-15.5) % Plt Count 173 (150-450) k/uL MPV 8.0 Macrocytosis Slight PT 11.2 (10.0-12.5) sec INR 1.0 (<1.2) APTT 25.2 (22.0-30.0) sec Sodium 139 (137-145) mmol/L Potassium 4.2 (3.5-5.1) mmol/L Chloride 104 (98-107) mmol/L Carbon Dioxide 29 (22-30) mmol/L Anion Gap 6 mmol/L BUN 15 (7-17) mg/dL Creatinine 0.61 (0.52-1.04) mg/dL Est GFR (CKD-EPI)AfAm >90 (>60 ml/min/1.73 sqM) Est GFR (CKD-EPI)NonAf >90 (>60 ml/min/1.73 sqM) Glucose 104 H (74-99) mg/dL Plasma Lactic Acid Tra (0.7-2.0) mmol/L Calcium 9.0 (8.4-10.2) mg/dL Total Bilirubin 0.4 (0.2-1.3) mg/dL AST 24 (14-36) U/L ALT 16 (4-34) U/L Alkaline Phosphatase 89 (38-126) U/L Total Protein 6.6 (6.3-8.2) g/dL Albumin 3.6 (3.5-5.0) g/dL Urine Color Urine Appearance (Clear) Urine pH (5.0-8.0) Ur Specific [employer] (1.001-1.035) Urine Protein (Negative) Urine Glucose (UA) (Negative) Urine Ketones (Negative) Urine Blood (Negative) Urine Nitrite (Negative) Urine Bilirubin (Negative) Urine Urobilinogen (<2.0) mg/dL Ur Leukocyte Esterase (Negative) Urine RBC (0-5) /hpf Urine WBC (0-5) /hpf Ur Squamous Epith Cells (0-4) /hpf Amorphous Sediment (None) /hpf Hyaline Casts (0-2) /lpf Urine Mucus (None) /hpf 04/30/23 05/01/23 Range/Units 21:27 00:42 WBC (3.8-10.6) k/uL RBC (3.80-5.40) m/uL Hgb (11.4-16.0) gm/dL Hct (34.0-46.0) % MCV (80.0-100.0) fL MCH (25.0-35.0) pg MCHC (31.0-37.0) g/dL RDW (11.5-15.5) % Plt Count (150-450) k/uL MPV Macrocytosis PT (10.0-12.5) sec INR (<1.2) APTT (22.0-30.0) sec Sodium (137-145) mmol/L Potassium (3.5-5.1) mmol/L Chloride (98-107) mmol/L Carbon Dioxide (22-30) mmol/L Anion Gap mmol/L BUN (7-17) mg/dL Creatinine (0.52-1.04) mg/dL Est GFR (CKD-EPI)AfAm (>60 ml/min/1.73 sqM) Est GFR (CKD-EPI)NonAf (>60 ml/min/1.73 sqM) Glucose (74-99) mg/dL Plasma Lactic Acid Tra 0.9 (0.7-2.0) mmol/L Calcium (8.4-10.2) mg/dL Total Bilirubin (0.2-1.3) mg/dL AST (14-36) U/L ALT (4-34) U/L Alkaline Phosphatase (38-126) U/L Total Protein (6.3-8.2) g/dL Albumin (3.5-5.0) g/dL Urine Color Yellow Urine Appearance Clear (Clear) Urine pH 7.0 (5.0-8.0) Ur Specific [employer] 1.020 (1.001-1.035) Urine Protein Negative (Negative) Urine Glucose (UA) Negative (Negative) Urine Ketones Trace H (Negative) Urine Blood Moderate H (Negative) Urine Nitrite Negative (Negative) Urine Bilirubin Negative (Negative) Urine Urobilinogen 4.0 (<2.0) mg/dL Ur Leukocyte Esterase Negative (Negative) Urine RBC 110 H (0-5) /hpf Urine WBC 2 (0-5) /hpf Ur Squamous Epith Cells <1 (0-4) /hpf Amorphous Sediment Rare H (None) /hpf Hyaline Casts 3 H (0-2) /lpf Urine Mucus Rare H (None) /hpf Disposition <Alexandria Mata - Last Filed: 04/30/23 18:38> Is patient prescribed a controlled substance at d/c from ED?: No <Melodie Natarajan - Last Filed: 05/04/23 06:19> Clinical Impression: Postmenopausal bleeding, Endometrial hyperplasia Disposition: HOME SELF-CARE Additional Instructions: Return to the emergency department with any new, worsening, or concerning symptoms. Take the progestin daily. Stop taking this if you develop chest pain, headaches, or dizziness. Contact the BLOOM CONVEYOR OPERATOR office as listed below. Let them know that you went to the emergency department for postmenopausal vaginal bleeding and were found to have endometrial hyperplasia, and see if they can schedule you for a follow up appointment. Also discuss this with your primary care provider to get their input and see if they can set you up with a sooner appt to see an BLOOM CONVEYOR OPERATOR. Prescriptions: Medroxyprogesterone Acetate 10 mg PO DAILY #30 tablet Referrals: Jay Jay Garcia MD [Primary Care Provider] - 1-2 days Nitin Mathis MD [STAFF PHYSICIAN] - 1-2 days
--- NOTE | 2023-04-30 20:30 | US ---
EXAMINATION TYPE: US transvaginal DATE OF EXAM: 04/30/2023 COMPARISON: NONE CLINICAL INDICATION: Female, 62 years old with history of bleeding; spotting x 6 months. Pt states he marcela bleeding with large clots starting yesterday. TECHNIQUE: Transvaginal (TV) Date of LMP: 10-12 years ago EXAM MEASUREMENTS: Uterus: 7.1 x 4.9 x 3.6 cm Endometrial Stripe: 1.9 cm Right Ovary: Not seen Left Ovary: Not seen 1. Uterus: Anteverted Heterogeneous 2. Endometrium: 2 Cystic areas seen, largest = 2.0 x 3.4 x 2.3cm 3. Right Ovary: Not seen due to atrophy and bowel 4. Left Ovary: Not seen due to atrophy and bowel 5. Bilateral Adnexa: wnl 6. Posterior cul-de-sac: wnl IMPRESSION: Thickened endometrium for a postmenopausal patient. Findings concerning for endometrial carcinoma til l proven otherwise. Direct visualization recommended.
[2023-04-30 21:34] LABS: HCT 42.9 % (34.0-46.0); MCH 33.6 pg (25.0-35.0); MCHC 32.6 g/dL (31.0-37.0); MCV 102.9 fL (80.0-100.0); Macrocytosis Slight; Platelet Count 173 k/uL (150-450); RBC 4.17 m/uL (3.80-5.40); RDW 13.2 % (11.5-15.5)
[2023-04-30 21:58] LABS: Partial Thromboplastin Time 25.2 sec (22.0-30.0); Prothrombin Time 11.2 sec (10.0-12.5)
[2023-04-30 22:02] LABS: ALT 16 U/L (4-34); AST 24 U/L (14-36); African American GFR (CKD) >90 (>60 ml/min/1.73 sqM); Albumin 3.6 g/dL (3.5-5.0); Alkaline Phosphatase 89 U/L (38-126); Anion Gap 6 mmol/L; Blood Urea Nitrogen 15 mg/dL (7-17); Carbon Dioxide 29 mmol/L (22-30); Chloride 104 mmol/L (98-107); Glucose 104 mg/dL (74-99); Non-African American GFR(CKD) >90 (>60 ml/min/1.73 sqM); Potassium 4.2 mmol/L (3.5-5.1); Sodium 139 mmol/L (137-145); Total Bilirubin 0.4 mg/dL (0.2-1.3); Total Protein 6.6 g/dL (6.3-8.2)
[2023-05-01] MEDS ORDERED: medroxyPROGESTERone 10 MG TABLET PO STA (00:18)
[2023-05-01 00:29] VITALS: BP 120/82; PULSE 78; RESP 18
[2023-05-01 01:22] LABS: Appearance,Urine Clear (Clear); Bilirubin,Urine Negative (Negative); Blood,Urine Moderate (Negative); Color,Urine Yellow; Glucose,Urine (UA) Negative (Negative); Ketones,Urine Trace (Negative); Protein,Urine Negative (Negative)
[2023-05-01 01:23] LABS: Leukocyte Esterase,Urine Negative (Negative); Nitrite,Urine Negative (Negative)
[2023-05-01 01:30] LABS: Amorphous Sediment,Urine Rare /hpf; Hyaline Casts,Urine 3 /lpf (0-2); Mucus,Urine Rare /hpf; RBC,Urine 110 /hpf (0-5); Squamous Epithelial Cell,Urine <1 /hpf (0-4); WBC,Urine 2 /hpf (0-5)
== END 2023-05-01 00:53 | disposition home or self-care (01) ==
LOC: EC 17:22
DX: N85.00 Endometrial hyperplasia, unspecified (principal); N95.0 Postmenopausal bleeding; F41.9 Anxiety disorder, unspecified; F32.A Depression, unspecified; F17.200 Nicotine dependence, unspecified, uncomplicated; F12.90 Cannabis use, unspecified, uncomplicated; Z79.899 Other long term (current) drug therapy
CPT/HCPCS: 36415; 76830; 80053; 81001; 83605; 85027; 85610; 85730; 99284